=== PATIENT | male | born 1945 | race Caucasian/White ===

== ENCOUNTER 2020-05-10 01:28 | Inpatient (IN) | payer MEDICARE ==
[2020-05-10] MEDS ORDERED: SODIUM CHLORIDE 0.9% 500 ML 500 ML IV STA (02:09)
[2020-05-10] MEDS ORDERED: MORPHINE SULFATE 4 MG/ML SYRINGE IV STA (02:09)
[2020-05-10] MEDS ORDERED: HEPARIN SODIUM,PORCINE 5,000 UNIT/ML 1 ML VIAL IV PRN (02:18)
[2020-05-10] MEDS ORDERED: HEPARIN SODIUM,PORCINE 10,000 UNIT/ML 1 ML VIAL IV ONE (02:18)
[2020-05-10] MEDS ORDERED: HEPARIN SOD,PORK IN 0.45% NACL 25,000 UNIT in 0.45% NACL 1 250ML.BAG IV SCH ×2 (02:30→11:00)
--- NOTE | 2020-05-10 02:35 | ED ---
Extremity Problem HPI - General Chief complaint: Extremity Problem,Nontraumatic Stated complaint: Abn Labs Time Seen by Provider: 05/10/20 01:34 Source: patient, EMS Mode of arrival: EMS Limitations: no limitations - History of Present Illness Initial comments: This patient is 74-year-old man with history of previous arterial bypass, who presents for suspected worsening of peripheral vascular disease. The patient had gone to [facility] with concerns about pain in his left leg. He states that it started around 6 in the morning. He went to the other hospital a little after 6, as he could no longer bear weight on his left leg. Patient relates that he had an arterial bypass performed by Dr. Ramirez here about 20 years ago, but he is not recalling the exact procedure. Patient complains of aching from the left buttock area following down the posterior aspect of his leg. He is not able to characterize it well. Currently about 8 out of 10 intensity. He has not noted worsening factors and states that it was made better with pain medication at the other hospital. MD Complaint: extremity pain, cold extremity Onset/Timin -: hour(s) Location: left, lower extremity Severity scale (1-10): 8 Quality: aching Consistency: constant Improves with: medication Worsens with: walking Associated Symptoms: denies other symptoms - Related Data Home Medications Medication Instructions Recorded Confirmed Albuterol Sulfate [Proventil Hfa] 2 puff INHALATION RT-Q4H PRN 05/10/20 05/10/20 Alendronate Sodium [Fosamax] 70 mg PO Q7D 05/10/20 05/10/20 Aspirin EC [Ecotrin Low Dose] 81 mg PO DAILY 05/10/20 05/10/20 Atorvastatin [Lipitor] 40 mg PO HS 05/10/20 05/10/20 Azithromycin 250 mg .ROUTE DAILY 05/10/20 05/10/20 Fenofibrate Nanocrystallized 145 mg PO DAILY 05/10/20 05/10/20 [Fenofibrate] Fluticasone/Salmeterol [Advair Hfa 2 puff INHALATION RT-BID 05/10/20 05/10/20 45-21 Mcg Inhaler] Furosemide [Lasix] 40 mg PO BID 05/10/20 05/10/20 LORazepam [Ativan] 1 mg PO TID PRN 05/10/20 05/10/20 Latanoprost [Xalatan 0.005%] 1 drop BOTH EYES HS 05/10/20 05/10/20 Metoprolol Tartrate [Lopressor] 50 mg PO BID-W/MEALS 05/10/20 05/10/20 Montelukast [Singulair] 10 mg PO HS 05/10/20 05/10/20 Montelukast [Singulair] 10 mg PO HS 05/10/20 05/10/20 Potassium Chloride [Klor-Con 20] 20 meq PO DAILY 05/10/20 05/10/20 Ramipril 10 mg PO DAILY 05/10/20 05/10/20 Sod Phos Di, [place]/K Phos [place] 250 mg PO BID 05/10/20 05/10/20 [Phosphorous 250 mg Tablet] Theophylline 12 Hour [Rusty-Dur] 300 mg PO BID 05/10/20 05/10/20 hydrALAZINE HCL [Apresoline] 50 mg PO BID 05/10/20 05/10/20 metFORMIN HCL 1,000 mg PO BID 05/10/20 05/10/20 predniSONE 5 mg PO DAILY 05/10/20 05/10/20 Allergies Allergy/AdvReac Type Severity Reaction Status Date / Time No Known Allergies Allergy Verified 05/10/20 09:21 Review of Systems ROS Statement: Those systems with pertinent positive or pertinent negative responses have been documented in the HPI. ROS Other: All systems not noted in ROS Statement are negative. Constitutional: Denies: fever, chills Respiratory: Denies: cough, dyspnea Cardiovascular: Denies: chest pain, palpitations, orthopnea, edema, syncope Gastrointestinal: Denies: abdominal pain, nausea, vomiting Genitourinary: Denies: dysuria, hematuria Musculoskeletal: Reports: as per HPI, myalgia. Denies: back pain Skin: Denies: rash, lesions Neurological: Reports: as per HPI, weakness, numbness. Denies: headache, confusion Hematological/Lymphatic: Denies: easy bleeding Past Medical History Past Medical History: Heart Failure, COPD, Diabetes Mellitus, Hypertension Additional Past Medical History / Comment(s): vascular issues History of Any Multi-Drug Resistant Organisms: None Reported Past Surgical History: Cholecystectomy Additional Past Surgical History / Comment(s): vascular surgery bilateral legs Past Psychological History: No Psychological Hx Reported Smoking Status: Former smoker Past Alcohol Use History: None Reported Past Drug Use History: None Reported - Past Family History Father Family Medical History: Coronary Artery Disease (CAD) Mother Family Medical History: No Reported History General Exam Limitations: no limitations General appearance: alert, in no apparent distress Head exam: Present: atraumatic, normocephalic Eye exam: Present: normal appearance. Absent: scleral icterus, conjunctival injection ENT exam: Present: normal oropharynx Respiratory exam: Present: normal lung sounds bilaterally. Absent: respiratory distress, wheezes, rales, rhonchi, stridor Cardiovascular Exam: Present: regular rate, normal rhythm, normal heart sounds. Absent: systolic murmur, diastolic murmur, rubs, gallop GI/Abdominal exam: Present: soft. Absent: distended, tenderness, guarding, rebound, rigid, mass Extremities exam: Present: other (Patient's left leg is cool and dusky about the ankle and foot. No capillary refill detected. No pedal pulses are palpable. Patient is able to move his toes). Absent: normal inspection, normal capillary refill, pedal edema Back exam: Present: normal inspection. Absent: CVA tenderness (R), CVA tenderness (L) Neurological exam: Present: alert. Absent: motor sensory deficit Skin exam: Present: warm, dry, intact, normal color. Absent: rash Course Vital Signs 05/10/20 05/10/20 05/10/20 01:30 02:00 02:30 Temperature 98 F Pulse Rate 100 80 84 Pulse Rate [ Right] Respiratory 18 18 18 Rate Blood Pressure 156/78 156/78 129/75 Blood Pressure [Right Arm] O2 Sat by Pulse 99 99 99 Oximetry 05/10/20 05/10/20 05/10/20 02:50 03:00 03:30 Temperature Pulse Rate 94 88 89 Pulse Rate [ Right] Respiratory 18 18 18 Rate Blood Pressure 159/79 159/79 140/73 Blood Pressure [Right Arm] O2 Sat by Pulse 98 99 98 Oximetry 05/10/20 05/10/20 05/10/20 04:30 06:00 07:00 Temperature Pulse Rate 88 84 Pulse Rate [ Right] Respiratory 18 18 Rate Blood Pressure 152/75 132/79 Blood Pressure [Right Arm] O2 Sat by Pulse 98 98 97 Oximetry 05/10/20 05/10/20 05/10/20 07:30 08:00 08:42 Temperature 98.3 F Pulse Rate Pulse Rate [ 84 Right] Respiratory 14 Rate Blood Pressure Blood Pressure 148/85 [Right Arm] O2 Sat by Pulse 96 95 97 Oximetry 05/10/20 09:30 Temperature Pulse Rate Pulse Rate [ Right] Respiratory 14 Rate Blood Pressure Blood Pressure [Right Arm] O2 Sat by Pulse Oximetry - Reevaluation(s) Reevaluation #1: 05/10/20 02:36 Case is discussed with Dr. Ramirez, as she had performed previous surgery with this patient. He states that we should discuss case with on-call vascular surgery, and I did discuss patient's case with Dr. Noel Medical Decision Making - Lab Data Result diagrams: 05/11/20 06:45 05/11/20 00:32 Lab Results 05/10/20 05/10/20 05/10/20 Range/Units 02:30 02:30 02:30 WBC 9.6 (3.8-10.6) k/uL RBC 5.23 (4.30-5.90) m/uL Hgb 14.4 (13.0-17.5) gm/dL Hct 46.2 (39.0-53.0) % MCV 88.2 (80.0-100.0) fL MCH 27.6 (25.0-35.0) pg MCHC 31.3 (31.0-37.0) g/dL RDW 13.4 (11.5-15.5) % Plt Count 345 (150-450) k/uL Neutrophils % 83 % Lymphocytes % 7 % Monocytes % 6 % Eosinophils % 1 % Basophils % 0 % Neutrophils # 8.0 H (1.3-7.7) k/uL Lymphocytes # 0.7 L (1.0-4.8) k/uL Monocytes # 0.6 (0-1.0) k/uL Eosinophils # 0.1 (0-0.7) k/uL Basophils # 0.0 (0-0.2) k/uL PT 12.5 H (9.0-12.0) sec INR 1.2 H (<1.2) APTT 157.4 H* (22.0-30.0) sec Sodium 134 L (137-145) mmol/L Potassium 4.9 (3.5-5.1) mmol/L Chloride 100 (98-107) mmol/L Carbon Dioxide 16 L (22-30) mmol/L Anion Gap 18 mmol/L BUN 48 H (9-20) mg/dL Creatinine 2.55 H (0.66-1.25) mg/dL Est GFR (CKD-EPI)AfAm 28 (>60 ml/min/1.73 sqM) Est GFR (CKD-EPI)NonAf 24 (>60 ml/min/1.73 sqM) Glucose 123 H (74-99) mg/dL Plasma Lactic Acid Terrence (0.7-2.0) mmol/L Calcium 9.9 (8.4-10.2) mg/dL Total Bilirubin 0.4 (0.2-1.3) mg/dL AST 52 (17-59) U/L ALT 15 (4-49) U/L Alkaline Phosphatase 49 (38-126) U/L Total Protein 6.4 (6.3-8.2) g/dL Albumin 3.8 (3.5-5.0) g/dL 05/10/20 Range/Units 02:30 WBC (3.8-10.6) k/uL RBC (4.30-5.90) m/uL Hgb (13.0-17.5) gm/dL Hct (39.0-53.0) % MCV (80.0-100.0) fL MCH (25.0-35.0) pg MCHC (31.0-37.0) g/dL RDW (11.5-15.5) % Plt Count (150-450) k/uL Neutrophils % % Lymphocytes % % Monocytes % % Eosinophils % % Basophils % % Neutrophils # (1.3-7.7) k/uL Lymphocytes # (1.0-4.8) k/uL Monocytes # (0-1.0) k/uL Eosinophils # (0-0.7) k/uL Basophils # (0-0.2) k/uL PT (9.0-12.0) sec INR (<1.2) APTT (22.0-30.0) sec Sodium (137-145) mmol/L Potassium (3.5-5.1) mmol/L Chloride (98-107) mmol/L Carbon Dioxide (22-30) mmol/L Anion Gap mmol/L BUN (9-20) mg/dL Creatinine (0.66-1.25) mg/dL Est GFR (CKD-EPI)AfAm (>60 ml/min/1.73 sqM) Est GFR (CKD-EPI)NonAf (>60 ml/min/1.73 sqM) Glucose (74-99) mg/dL Plasma Lactic Acid Terrence 1.5 (0.7-2.0) mmol/L Calcium (8.4-10.2) mg/dL Total Bilirubin (0.2-1.3) mg/dL AST (17-59) U/L ALT (4-49) U/L Alkaline Phosphatase (38-126) U/L Total Protein (6.3-8.2) g/dL Albumin (3.5-5.0) g/dL - EKG Data -: EKG Interpreted by [place] EKG shows normal: sinus rhythm, axis (Left axis deviation), intervals (Normal), ST-T waves (Normal) Rate: normal (Rate 94 bpm) Interpretation: other (Possible old anterior and inferior infarct.) Critical Care Time Critical Care Time: Yes (35 minutes) Disposition Clinical Impression: Arterial insufficiency of lower extremity Disposition: ADMITTED IP TO THIS [facility] Condition: Serious Is patient prescribed a controlled substance at d/c from ED?: No
[2020-05-10 02:52] LABS: Basophils % (A) 0 %; Eosinophils # (A) 0.1 k/uL (0-0.7); Eosinophils % (A) 1 %; HCT 46.2 % (39.0-53.0); HGB 14.4 gm/dL (13.0-17.5); Lymphocytes # (A) 0.7 k/uL (1.0-4.8); Lymphocytes % (A) 7 %; MCH 27.6 pg (25.0-35.0); MCHC 31.3 g/dL (31.0-37.0); MCV 88.2 fL (80.0-100.0); Monocytes # (A) 0.6 k/uL (0-1.0); Monocytes % (A) 6 %; Neutrophils % (A) 83 %; Platelet Count 345 k/uL (150-450); RBC 5.23 m/uL (4.30-5.90); RDW 13.4 % (11.5-15.5); WBC 9.6 k/uL (3.8-10.6)
[2020-05-10] MEDS ORDERED: NALOXONE 0.4 MG/ML 1 ML VIAL IV PRN (03:08)
[2020-05-10] MEDS ORDERED: MORPHINE SULFATE 4 MG/ML SYRINGE IV PRN (03:08)
[2020-05-10] MEDS ORDERED: ONDANSETRON 4 MG/2 ML VIAL IVP PRN (03:08)
[2020-05-10] MEDS ORDERED: HYDROmorphone 0.5 MG/0.5 ML SYRINGE IVP PRN (03:08)
[2020-05-10 03:09] LABS: Albumin 3.8 g/dL (3.5-5.0); Calcium 9.9 mg/dL (8.4-10.2); Potassium 4.9 mmol/L (3.5-5.1); Total Bilirubin 0.4 mg/dL (0.2-1.3); Total Protein 6.4 g/dL (6.3-8.2)
[2020-05-10 03:26] LABS: INR 1.2 (<1.2); Prothrombin Time 12.5 sec (9.0-12.0)
[2020-05-10 03:34] LABS: Partial Thromboplastin Time 157.4 sec (22.0-30.0)
[2020-05-10] MEDS: SODIUM CHLORIDE 0.9% 1,000 ML IV SCH ×3 (03:42→21:28)
[2020-05-10] MEDS: FAMOTIDINE 20 MG/2 ML VIAL IV SCH ×2 (03:44→13:51)
[2020-05-10] MEDS ORDERED: LORazepam 1 MG TAB PO PRN (10:15)
[2020-05-10] MEDS ORDERED: ALBUTEROL NEBULIZED 2.5 MG/3 ML INHALATION PRN (10:15)
[2020-05-10] MEDS ORDERED: ASPIRIN 325 MG TAB PO ONE (10:25)
[2020-05-10] MEDS ORDERED: IV FLUID CONTINUATION 200 ML IV ONE (10:28)
[2020-05-10] MEDS: MIDAZOLAM 2 MG/2 ML VIAL IVP ONE ×2 (10:28→10:36)
[2020-05-10] MEDS ORDERED: LIDOCAINE 1% INJ 10MG/ML (20 ML MDV) SQ ONE (10:36)
[2020-05-10] MEDS: fentaNYL (PF) 50 MCG/ML 2 ML AMP IV ONE ×2 (10:38→11:01)
[2020-05-10] MEDS ORDERED: SODIUM CHLORIDE 0.9% 1,000 ML IV ONE (11:08)
[2020-05-10] MEDS ORDERED: ALTEPLASE IV ONE (11:15)
[2020-05-10] MEDS: ALTEPLASE 10 MG in SODIUM CHLORIDE 0.9% 100 ML IA ONE ×2 (11:23→11:46)
[2020-05-10] MEDS ORDERED: IOPAMIDOL-250 100ML BTL INTRAARTER ONE (11:24)
[2020-05-10] MEDS ORDERED: IOPAMIDOL-250 50ML BTL INTRAARTER ONE (11:25)
[2020-05-10] MEDS ORDERED: ALTEPLASE BOLUS 1 MG/1 ML SYRINGE IVP ONE (11:26)
[2020-05-10 12:02] LABS: Glucose,Whole Blood 104 mg/dL (75-99)
[2020-05-10] MEDS: hydrALAZINE HCL 50 MG TAB PO SCH ×2 (13:54→21:44)
[2020-05-10] MEDS: THEOPHYLLINE 24 HOUR 300 MG CAP.ER.24H PO SCH (13:54)
--- NOTE | 2020-05-10 15:42 | P.CNPUL ---
History of Present Illness Consult date: 05/10/20 Requesting physician: Jared Noel Reason for consult: other Chief complaint: Cold extremity, left leg pain History of present illness: 74-year-old white male patient with history significant for severe end-stage COPD, stage IV, with baseline FEV1 of 21% of predicted and chronic hypoxic respi ratory failure on 2 L of oxygen on a regular basis, and maintenance dose of prednisone at 5 mg daily, obstructive sleep apnea on BiPAP, hypertension, hyperlipidemia, diabetes mellitus, coronary artery disease with previous stenting, and previous history of myocardial infarction, peripheral vessel oc clusive disease, with previous aortobifem bypass, who presented to the emergency department as a transfer from [facility] where she went for evaluation of left leg pain, achy discomfort from the left buttock following down to the posterior aspect of his left leg, and cold left lower extremity. Patient was transferred to [facility] for vascular surgery evaluation for suspected worsening of peripheral vascular disease. Left leg was extremely cold and dusky and mottled about the ankle and the foot, a refill was detected, no pedal pulses or posterior tibial pulses are palpable. Dr. Noel evaluated the patient, and patient was taken to the field laborer for aortogram with left lower extremity thrombolysis. Patient came to the intensive care unit following his procedure, he is somewhat confused, but appears to be in no acute distress. Resting in bed, with a consumer safety officer at the bedside, he denies any worsening dyspnea, room air pulse ox is 97%, he has a left brachial sheath in place with TPA infusion at 1 mg/h and heparin infusion per weight-based p rotocol. Today's labs have been reviewed showing white blood cell count of 9.6, hemoglobin of 14.4, INR was 1.2, PTT was 157.4, sodium was 134, potassium is 4.9, chloride was 100, CO2 16, BUN is 48, creatinine is 2.5, LFTs are within normal limits, lactic acid was 1.5, there is still low palpable or Doppler pulses in his left foot, but were told the mottling of the left lower extremity has slightly improved. Left foot and left leg just below the knee is still quite pale and cold to touch. Patient is not complaining of any pain. IV fluids 0.9 normal saline infusing at a rate of 125 ML per hour. Patient is in sinus mechanism slightly tachycardic at a rate of 108 BPM, blood pressure is 154 /97. Review of Systems All systems: negative Constitutional: Denies chills, Denies fever Eyes: denies blurred vision, denies pain Ears, nose, mouth and throat: Denies headache, Denies sore throat Cardiovascular: Denies chest pain, Denies shortness of breath Respiratory: Denies cough Gastrointestinal: Denies abdominal pain, Denies diarrhea, Denies nausea, Denies vomiting Musculoskeletal: Denies myalgias Musculoskeletal: left: foot pain Integumentary: Denies pruritus, Denies rash Neurological: Denies numbness, Denies weakness Psychiatric: Denies anxiety, Denies depression Endocrine: Denies fatigue, Denies weight change Past Medical History Past Medical History: Coronary Artery Disease (CAD), Heart Failure, COPD, Diabetes Mellitus, Eye Disorder, GERD/Reflux, Hyperlipidemia, Hypertension, Myocardial Infarction ([place]), Osteoarthritis (OA), Pneumonia, Sleep Apnea/CPAP/BIPAP, Vascular Disorder Additional Past Medical History / Comment(s): NIDDM type II, past home oxygen use, TERESA with Cpap, MIs in 1997 and 2006, glaucoma bilateral eyes, arthritis bilateral hands Last Myocardial Infarction Date:: 2006 History of Any Multi-Drug Resistant Organisms: None Reported Past Surgical History: Cholecystectomy, Heart Catheterization With Stent Additional Past Surgical History / Comment(s): Aortobifem bypass, bronchoscopy with BAL, bilateral cataracts removed/lens implants. Past Anesthesia/Blood Transfusion Reactions: No Reported Reaction Date of Last Stent Placement:: 2006 Smoking Status: Former smoker - Past Family History Father Family Medical History: Coronary Artery Disease (CAD) Mother Family Medical History: No Reported History Medications and Allergies Home Medications Medication Instructions Recorded Confirmed Type Albuterol Sulfate [Proventil Hfa] 2 puff INHALATION RT-Q4H PRN 05/10/20 05/10/20 History Alendronate Sodium [Fosamax] 70 mg PO Q7D 05/10/20 05/10/20 History Aspirin EC [Ecotrin Low Dose] 81 mg PO DAILY 05/10/20 05/10/20 History Atorvastatin [Lipitor] 40 mg PO HS 05/10/20 05/10/20 History Azithromycin 250 mg .ROUTE DAILY 05/10/20 05/10/20 History Fenofibrate Nanocrystallized 145 mg PO DAILY 05/10/20 05/10/20 History [Fenofibrate] Fluticasone/Salmeterol [Advair Hfa 2 puff INHALATION RT-BID 05/10/20 05/10/20 History 45-21 Mcg Inhaler] Furosemide [Lasix] 40 mg PO BID 05/10/20 05/10/20 History LORazepam [Ativan] 1 mg PO TID PRN 05/10/20 05/10/20 History Latanoprost [Xalatan 0.005%] 1 drop BOTH EYES HS 05/10/20 05/10/20 History Metoprolol Tartrate [Lopressor] 50 mg PO BID-W/MEALS 05/10/20 05/10/20 History Montelukast [Singulair] 10 mg PO HS 05/10/20 05/10/20 History Montelukast [Singulair] 10 mg PO HS 05/10/20 05/10/20 History Potassium Chloride [Klor-Con 20] 20 meq PO DAILY 05/10/20 05/10/20 History Ramipril 10 mg PO DAILY 05/10/20 05/10/20 History Sod Phos Di, [place]/K Phos [place] 250 mg PO BID 05/10/20 05/10/20 History [Phosphorous 250 mg Tablet] Theophylline 12 Hour [Rusty-Dur] 300 mg PO BID 05/10/20 05/10/20 History hydrALAZINE HCL [Apresoline] 50 mg PO BID 05/10/20 05/10/20 History metFORMIN HCL 1,000 mg PO BID 05/10/20 05/10/20 History predniSONE 5 mg PO DAILY 05/10/20 05/10/20 History Allergies Allergy/AdvReac Type Severity Reaction Status Date / Time No Known Allergies Allergy Verified 05/10/20 09:21 Physical Exam Vitals: Vital Signs Temp Pulse Pulse Resp BP BP Pulse Ox 05/10/20 09:30 14 05/10/20 08:42 98.3 F 84 14 148/85 97 05/10/20 06:00 84 18 132/79 98 05/10/20 04:30 88 18 152/75 98 05/10/20 03:30 89 18 140/73 98 05/10/20 03:00 88 18 159/79 99 05/10/20 02:50 94 18 159/79 98 05/10/20 02:30 84 18 129/75 99 05/10/20 02:00 80 18 156/78 99 05/10/20 01:30 98 F 100 18 156/78 99 Intake and Output 05/10/20 05/10/20 05/10/20 06:59 14:59 22:59 Intake Total 8.858 225 Output Total 45 Balance 8.858 180 Intake: IV 225 Intake, IV Titration 8.858 Amount Heparin Sod,Pork in 0.45% 8.858 NaCl 25,000 unit In 0.45 % NaCl 1 250ml.bag @ 18 UNITS/KG/HR 15.186 mls/hr IV .[id number] [id number] Rx#: [id number] Output: Urine 45 Other: Voiding Method Urinal Weight 84.368 kg 84.368 kg GENERAL EXAM: Alert, quite pleasant, slightly confused, 74-year-old white male, on room air with pulse ox of 97% comfortable in no apparent distress. HEAD: Normocephalic/atraumatic. EYES: Normal reaction of pupils, equal size. Conjunctiva pink, sclera white. NOSE: Clear with pink turbinates. THROAT: No erythema or exudates. NECK: No masses, no JVD, no thyroid enlargement, no adenopathy. CHEST: No chest wall deformity. Symmetrical expansion. LUNGS: Equal air entry with no crackles, wheeze, rhonchi or dullness. CVS: Regular rate and rhythm, normal S1 and S2, no gallops, no murmurs, no rubs ABDOMEN: Soft, nontender. No hepatosplenomegaly, normal bowel sounds, no guarding or rigidity. EXTREMITIES: No clubbing, no edema, no cyanosis, bilateral lower extremities are pale and cold, with no palpable or Doppler pulses. Left brachial sheath is in place with alteplase infusion at 1 mg per hour MUSCULOSKELETAL: Muscle strength and tone normal. SPINE: No scoliosis or deformity SKIN: No rashes CENTRAL NERVOUS SYSTEM: Alert and oriented -2. No focal deficits, tone is norm al in all 4 extremities. Results - Laboratory Findings CBC and BMP: 05/10/20 02:30 05/10/20 02:30 PT/INR, D-dimer PT 12.5 sec (9.0-12.0) H 05/10/20 02:30 INR 1.2 (<1.2) H 05/10/20 02:30 Abnormal lab findings: Abnormal Labs 05/10/20 05/10/20 05/10/20 02:30 02:30 02:30 Neutrophils # 8.0 H Lymphocytes # 0.7 L PT 12.5 H INR 1.2 H APTT 157.4 H* Sodium 134 L Carbon Dioxide 16 L BUN 48 H Creatinine 2.55 H Glucose 123 H POC Glucose (mg/dL) 05/10/20 05/10/20 09:05 12:00 Neutrophils # Lymphocytes # PT INR APTT >200.0 H* Sodium Carbon Dioxide BUN Creatinine Glucose POC Glucose (mg/dL) 104 H - Diagnostic Findings Chest x-ray: report reviewed, image reviewed Additional studies: EKG reviewed Assessment and Plan Assessment: Assessment: #1. Acute on chronic arterial insufficiency of left lower extremity, cold left extremity, status post aortogram with left lower extremity thrombolysis, on 05/10/2020. Patient is currently on alteplase infusion and heparin infusion #2. History of peripheral arterial occlusive disease with previous history of aortobifem bypass #3. End-stage COPD, with a baseline FEV1 of 21% of predicted at home oxygen at 2 L/m, on maintenance dose of prednisone 5 mg daily. Patient is also on [place] sp, Advair, maintenance dose of azithromycin 250 mg on Saturday schedule, Ventolin inhaler, Singulair and theophylline #4. History of coronary artery disease with history of stenting #5. Previous history of [place] #6. Chronic congestive heart failure #7. Diabetes mellitus type 2 #8. Hypertension #9. Hyperlipidemia #10. GERD/reflux #11. Obstructive sleep apnea with AHI score of 18.7, on home BiPAP with pressures of 13/9 #12. Former smoker, in remission, carries [id number] smoking history #13. Possible chronic kidney disease, unspecified Plan: Continue close monitoring in the intensive care unit, patient remains on alteplase infusion, and heparin infusion, he is being followed by vascular surgery. Left lower extremity is still cold without Doppler pulses, but we're told it is less mottled. Hemodynamically patient remains stable, maintain pain control, patient is receiving IV fluids at 125 ML per hour. Patient is on his usual inhalers and breathing medications including theophylline, Symbicort, prednisone and Singulair. Not clear if patient has chronic kidney disease or sustained acute kidney injury. We'll obtain follow-up labs in the morning, CBC and BMP. Continue closely monitoring in the intensive care unit. Will order BiPAP for bedtime at his usual pressures of 13/9 I performed a history & physical examination of the patient and discussed their management with my nurse practitioner, Kayla Jordan. I reviewed the nurse practitioner's note and agree with the documented findings and plan of care. Lung sounds are positive for diminished breath sounds. The findings and the impression was discussed with the patient. I attest to the documentation by the nurse practitioner. Time with Patient: Greater than 30
[2020-05-10] MEDS ORDERED: FUROSEMIDE 40 MG TAB PO SCH (16:00)
[2020-05-10 17:06] LABS: Glucose,Whole Blood 145 mg/dL (75-99)
[2020-05-10] MEDS ORDERED: METOPROLOL TARTRATE 50 MG TAB PO SCH (17:30)
--- NOTE | 2020-05-10 17:47 | P.GSCN ---
History of Present Illness Consult date: 05/10/20 (Patient was seen at 7:30 in the morning.) Reason for Consult: left lower extremity ischemia History of present illness: 74-year-old gentleman with history of previous aortic bypass presented to the [facility] emergency department last night secondary to pain in his left lower extremity. He states around 6:00 in the morning he was unable to bear weight on his left leg due to pain and therefore he presented to the emergency department at that time. He was transferred to [facility] and I was contacted at 2:15 in the morning. At that time patient had lactic acid measured at [facility] which was around 2.5 and recheck here in the emergency department at [facility] which showed some improvement to less than 2. When discussing with the emergency department patient was having pain at his left foot as well as coolness but he was moving his foot and toes. After a bolus was given according to the emergency physician his ability to move his foot had improved. He was started on heparin drip and plan was for aortogram with possible intervention in the morning. Patient was then seen this morning and was complaining of some pain but he stated his pain had been the same since overnight. His motion in his foot was more diminished according to the nursing staff and his right foot was now cool as well. He denies any fevers, chills, chest pain or shortness of breath. Review of Systems All systems: negative (What is mentioned in the HPI or past medical history) Past Medical History Past Medical History: Coronary Artery Disease (CAD), Heart Failure, COPD, Diabetes Mellitus, Eye Disorder, GERD/Reflux, Hyperlipidemia, Hypertension, Myocardial Infarction (UT), Osteoarthritis (OA), Pneumonia, Sleep Apnea/CPA P/BIPAP, Vascular Disorder Additional Past Medical History / Comment(s): NIDDM type II, past home oxygen use, TERESA with Cpap, MIs in 1997 and 2006, glaucoma bilateral eyes, arthritis bilateral hands Last Myocardial Infarction Date:: 2006 History of Any Multi-Drug Resistant Organisms: None Reported Past Surgical History: Cholecystectomy, Heart Catheterization With Stent Additional Past Surgical History / Comment(s): Aortobifem bypass, bronchoscopy with BAL, bilateral cataracts removed/lens implants. Past Anesthesia/Blood Transfusion Reactions: No Reported Reaction Date of Last Stent Placement:: 2006 Smoking Status: Former smoker - Past Family History Father Family Medical History: Coronary Artery Disease (CAD) Mother Family Medical History: No Reported History Medications and Allergies Home Medications Medication Instructions Recorded Confirmed Type Albuterol Sulfate [Proventil Hfa] 2 puff INHALATION RT-Q4H PRN 05/10/20 05/10/20 History Alendronate Sodium [Fosamax] 70 mg PO Q7D 05/10/20 05/10/20 History Aspirin EC [Ecotrin Low Dose] 81 mg PO DAILY 05/10/20 05/10/20 History Atorvastatin [Lipitor] 40 mg PO HS 05/10/20 05/10/20 History Azithromycin 250 mg .ROUTE DAILY 05/10/20 05/10/20 History Fenofibrate Nanocrystallized 145 mg PO DAILY 05/10/20 05/10/20 History [Fenofibrate] Fluticasone/Salmeterol [Advair Hfa 2 puff INHALATION RT-BID 05/10/20 05/10/20 History 45-21 Mcg Inhaler] Furosemide [Lasix] 40 mg PO BID 05/10/20 05/10/20 History LORazepam [Ativan] 1 mg PO TID PRN 05/10/20 05/10/20 History Latanoprost [Xalatan 0.005%] 1 drop BOTH EYES HS 05/10/20 05/10/20 History Metoprolol Tartrate [Lopressor] 50 mg PO BID-W/MEALS 05/10/20 05/10/20 History Montelukast [Singulair] 10 mg PO HS 05/10/20 05/10/20 History Montelukast [Singulair] 10 mg PO HS 05/10/20 05/10/20 History Potassium Chloride [Klor-Con 20] 20 meq PO DAILY 05/10/20 05/10/20 History Ramipril 10 mg PO DAILY 05/10/20 05/10/20 History Sod Phos Di, Kidder/K Phos Kidder 250 mg PO BID 05/10/20 05/10/20 History [Phosphorous 250 mg Tablet] Theophylline 12 Hour [Rusty-Dur] 300 mg PO BID 05/10/20 05/10/20 History hydrALAZINE HCL [Apresoline] 50 mg PO BID 05/10/20 05/10/20 History metFORMIN HCL 1,000 mg PO BID 05/10/20 05/10/20 History predniSONE 5 mg PO DAILY 05/10/20 05/10/20 History Allergies Allergy/AdvReac Type Severity Reaction Status Date / Time No Known Allergies Allergy Verified 05/10/20 09:21 Surgical - Exam Vital Signs Temp Pulse Resp BP Pulse Ox 98 F 100 18 156/78 99 05/10/20 01:30 05/10/20 01:30 05/10/20 01:30 05/10/20 01:30 05/10/20 01:30 Nonpalpable femoral, DP, PT, popliteal pulses bilaterally. Left foot is cool to the touch and positive tenderness to palpation at the left calf and thigh. Mild mottling noted at the left thigh. No capillary refill is noted bilateral feet. No Doppler signal is obtainable at the femoral, popliteal or DP PT. - General moderate distress, moderate pain, obese - Eyes PERRL, normal ocular movement - ENT normal pinna, normal nares - Neck no masses - Respiratory normal expansion - Cardiovascular Rhythm: regular - Abdomen Abdomen: soft, non tender - Integumentary no rash - Neurologic no normal coordination, no normal sensation - Psychiatric oriented to time, oriented to person, oriented to place, speech is normal Results - Labs 05/10/20 02:30 05/10/20 02:30 Abnormal Lab Results - Last 24 Hours (Table) 05/10/20 05/10/20 05/10/20 Range/Units 02:30 02:30 02:30 Neutrophils # 8.0 H (1.3-7.7) k/uL Lymphocytes # 0.7 L (1.0-4.8) k/uL PT 12.5 H (9.0-12.0) sec INR 1.2 H (<1.2) APTT 157.4 H* (22.0-30.0) sec Sodium 134 L (137-145) mmol/L Carbon Dioxide 16 L (22-30) mmol/L BUN 48 H (9-20) mg/dL Creatinine 2.55 H (0.66-1.25) mg/dL Glucose 123 H (74-99) mg/dL POC Glucose (mg/dL) (75-99) mg/dL 05/10/20 05/10/20 05/10/20 Range/Units 09:05 12:00 17:04 Neutrophils # (1.3-7.7) k/uL Lymphocytes # (1.0-4.8) k/uL PT (9.0-12.0) sec INR (<1.2) APTT >200.0 H* (22.0-30.0) sec Sodium (137-145) mmol/L Carbon Dioxide (22-30) mmol/L BUN (9-20) mg/dL Creatinine (0.66-1.25) mg/dL Glucose (74-99) mg/dL POC Glucose (mg/dL) 104 H 145 H (75-99) mg/dL Diabetes panel 05/10/20 Range/Units 02:30 Sodium 134 L (137-145) mmol/L Potassium 4.9 (3.5-5.1) mmol/L Chloride 100 (98-107) mmol/L Carbon Dioxide 16 L (22-30) mmol/L BUN 48 H (9-20) mg/dL Creatinine 2.55 H (0.66-1.25) mg/dL Glucose 123 H (74-99) mg/dL Calcium 9.9 (8.4-10.2) mg/dL AST 52 (17-59) U/L ALT 15 (4-49) U/L Alkaline Phosphatase 49 (38-126) U/L Total Protein 6.4 (6.3-8.2) g/dL Albumin 3.8 (3.5-5.0) g/dL Calcium panel 05/10/20 Range/Units 02:30 Calcium 9.9 (8.4-10.2) mg/dL Albumin 3.8 (3.5-5.0) g/dL Pituitary panel 05/10/20 Range/Units 02:30 Sodium 134 L (137-145) mmol/L Potassium 4.9 (3.5-5.1) mmol/L Chloride 100 (98-107) mmol/L Carbon Dioxide 16 L (22-30) mmol/L BUN 48 H (9-20) mg/dL Creatinine 2.55 H (0.66-1.25) mg/dL Glucose 123 H (74-99) mg/dL Calcium 9.9 (8.4-10.2) mg/dL Adrenal panel 05/10/20 Range/Units 02:30 Sodium 134 L (137-145) mmol/L Potassium 4.9 (3.5-5.1) mmol/L Chloride 100 (98-107) mmol/L Carbon Dioxide 16 L (22-30) mmol/L BUN 48 H (9-20) mg/dL Creatinine 2.55 H (0.66-1.25) mg/dL Glucose 123 H (74-99) mg/dL Calcium 9.9 (8.4-10.2) mg/dL Total Bilirubin 0.4 (0.2-1.3) mg/dL AST 52 (17-59) U/L ALT 15 (4-49) U/L Alkaline Phosphatase 49 (38-126) U/L Total Protein 6.4 (6.3-8.2) g/dL Albumin 3.8 (3.5-5.0) g/dL Assessment and Plan Assessment: #1 acute aortic graft occlusion #2 critical limb ischemia of the left lower extremity #3 history of peripheral arterial occlusive disease with aortic bypass #4 end-stage COPD #5 coronary artery disease with history of stenting #6 previous UT #7 diabetes type 2 #8 hypertension #9 acute on chronic kidney disease Plan: Agree with starting heparin drip. We will take him urgently for aortogram and thrombolysis of his lower extremities and aorta. I did discuss with him the possibility of needing open surgery which according to him he was told if he had to undergo anesthesia and a large surgery that he would "". We will have further recommendations after his aortogram and thrombolytic therapy.
--- NOTE | 2020-05-10 17:58 | P.OP ---
Date of Procedure: 05/10/20 Preoperative Diagnosis: Critical limb ischemia of the left lower extremity Aortic occlusive disease Postoperative Diagnosis: Critical limb ischemia left lower extremity Aortic occlusion and left lower extremity femoral occlusion Procedure(s) Performed: Aortogram with initiation of aortic thrombolysis via left brachial artery ultrasound guided access Anesthesia: local, other (Moderate conscious sedation 40 minutes) Surgeon: Jared Noel Estimated Blood Loss (ml): 10 Pathology: none sent Condition: stable Disposition: ICU Indications for Procedure: 74-year-old gentleman presented originally to [facility] emergency department for left lower extremity pain and was transferred to [facility] for surgical intervention and care. He was started on a heparin drip and was found to have no pulses in bilateral groins popliteal or tibial regions. He presents today for aortogram with initiation of thrombolysis versus thrombectomy. Operative Findings: Aortic occlusion just distal to the renal arteries likely aortic graft occlusion. There is reconstitution of the left external iliac artery. Description of Procedure: After written informed consent was obtained the patient all risks benefits and competitions were described patient is brought to the [facility] and laid in the supine position with his left arm outstretched on an armboard. The area of the left arm was prepped and draped in usual sterile fashion. The procedure was performed under local with conscious sedation and continuous monitoring with EKG and pulse ox. After his prepped the area of the left brachial artery was visualized under ultrasound shown to be patent without any disease. Utilizing a multipurpose needle the artery was accessed and a 5-Somali sheath was placed in normal fashion. Glidewire was then placed into the aortic arch followed by pigtail catheter and the wire and catheter were directed into the descending thoracic aorta to the abdominal aorta. Aortogram was then obtained demonstrating occlusion just distal to the renal arteries. At that time a Glidewire was utilized to access the existing graft and with a quick cross catheter the wire was placed into the external iliac artery on the left. Once the lesion was crossed angiogram was taken distally which demonstrated good visualization of the internal iliac and external iliac arteries with femoral artery filling but it appeared to have thrombus at the distal aspect of the femoral artery. At that time the wire was left in place and the 5-Somali sheath in the brachial artery was removed and replaced with a long 55 cm destination 6- Somali sheath.. We then placed a 20cm unifuse thrombolytic catheter across the lesion extending from the aorta to the external iliac artery on the left. This placement would ensure thrombolysis of the aortic graft as well as extending into the right lower extremity. Sheath was then sutured in place with nylon suture and femoral lysis was initiated. Patient will return tomorrow morning for recheck.
[2020-05-10] MEDS: SYMBICORT 80-4.5 MCG INHALER INHALATION SCH (19:24)
--- NOTE | 2020-05-10 20:57 | P.CONS ---
History of Present Illness - Reason for Consult Consult date: 05/10/20 Medical management Requesting physician: Jared Noel - Chief Complaint Left leg cold - History of Present Illness Consultation: This is a 74-year-old patient follows with Dr. Sophia Duval. Chronic stable medical conditions include coronary artery disease, CHF, COPD, diabetes, GERD, hypertension, hyperlipidemia, osteoarthritis,(s) sleep apnea uses CPAP, arthritis. Home oxygen 2 L. Patient has known peripheral arterial disease. Initially presented to [facility] last night with increasing pain in his left leg. Starting around 6 AM. He had previous arterial bypass done by Dr. Lobato about 20 years ago. Having pain from the left buttock down to the posterior aspect of the leg. Patient had become rather severe. Neck like was called and also mottled from the ankle downwards. Patient was taken to the [facility] earlier today by Dr. Noel and extensive trouble lysis was carried out. Patient somewhat delirious. Patient also getting a TPA infusion and heparin infusion. Patient did tell his name but somewhat delirious. Admitting review of systems cannot be done as patient rather delirious Past medical history to include: Coronary artery disease, CHF, COPD, diabetes, GERD, hypertension, hyperlipidemia, osteoarthritis, Lucho sleep apnea uses CPAP, peripheral arterial disease, home oxygen 2 L, glaucoma, arthritis September-bypass, cardiac catheterization was stent Social history: Patient lives alone. recently about 2 weeks ago. Was in a group home. He does use a walker. Patient smoked for 30 years stopped in 1995. No alcohol history reported. Physical examination: VITAL SIGNS: 99, 128, 23, 134/59, 99% on nasal cannula GENERAL: BMI 29.1, laying in bed awake slightly delirious. EYES: Pupils equal. Conjunctiva normal. HEENT: External appearance of nose and ears normal, oral cavity dry. NECK: JVD unable to assess; masses not palpable. HEART: First and second heart sounds are normal; no edema. LUNGS: Respiratory rate normal; decreased breath sounds. ABDOMEN: Soft, nontender, liver spleen not palpable, no masses palpable. PSYCH: [Patient does state his name is not sure where he is, delirious l. NEUROLOGICAL: [Cranial nerves grossly intact; no facial asymmetry, EXTREMITY: Patient's left leg is cool distally LYMPHATICS: No lymph nodes palpable in the axilla and neck INVESTIGATIONS, reviewed in the clinical context: White count 9.6 hemoglobin 14.4 platelets 345 pro time 12.5 potassium 4.9 bun 48 creatinine 2.55 EKG tracing personally reviewed by me-still sensitive the with poor R-wave progr ession Assessment: -Critical limb ischemia acute to the left lower extremity with aortic occlusion and left lower extremity femoral occlusion. Followed by aortic thrombolysis via left brachial artery. -Acute delirium multifactorial -Coronary artery disease prior history of stent -Chronic congestive heart failure EF not known -COPD in an ex-smoker -Diabetes mellitus type 2 -GERD -Hyperlipidemia -Essential hypertension -Primary osteoarthritis -Obstructive sleep apnea uses CPAP machine -Suspect chronic kidney disease, acute kidney injury cannot be ruled out given the occlusion Plan: Patient's currently getting alteplase, Symbicort, IV heparin, hydralazine, Lopressor, prednisone, theophylline. For now will discontinue patient's Lasix, lisinopril metformin. Accu-Cheks will be closely followed with sliding scale insulin. Repeat electrolytes in the morning. Thank you Dr. Noel Past Medical History Past Medical History: Heart Failure, COPD, Diabetes Mellitus, Hypertension Additional Past Medical History / Comment(s): vascular issues History of Any Multi-Drug Resistant Organisms: None Reported Past Surgical History: Cholecystectomy Additional Past Surgical History / Comment(s): vascular surgery bilateral legs Past Psychological History: No Psychological Hx Reported Smoking Status: Former smoker Past Alcohol Use History: None Reported Past Drug Use History: None Reported - Past Family History Father Family Medical History: Coronary Artery Disease (CAD) Mother Family Medical History: No Reported History Medications and Allergies Home Medications Medication Instructions Recorded Confirmed Type Albuterol Sulfate [Proventil Hfa] 2 puff INHALATION RT-Q4H PRN 05/10/20 05/10/20 History Alendronate Sodium [Fosamax] 70 mg PO Q7D 05/10/20 05/10/20 History Aspirin EC [Ecotrin Low Dose] 81 mg PO DAILY 05/10/20 05/10/20 History Atorvastatin [Lipitor] 40 mg PO HS 05/10/20 05/10/20 History Azithromycin 250 mg .ROUTE DAILY 05/10/20 05/10/20 History Fenofibrate Nanocrystallized 145 mg PO DAILY 05/10/20 05/10/20 History [Fenofibrate] Fluticasone/Salmeterol [Advair Hfa 2 puff INHALATION RT-BID 05/10/20 05/10/20 History 45-21 Mcg Inhaler] Furosemide [Lasix] 40 mg PO BID 05/10/20 05/10/20 History LORazepam [Ativan] 1 mg PO TID PRN 05/10/20 05/10/20 History Latanoprost [Xalatan 0.005%] 1 drop BOTH EYES HS 05/10/20 05/10/20 History Metoprolol Tartrate [Lopressor] 50 mg PO BID-W/MEALS 05/10/20 05/10/20 History Montelukast [Singulair] 10 mg PO HS 05/10/20 05/10/20 History Montelukast [Singulair] 10 mg PO HS 05/10/20 05/10/20 History Potassium Chloride [Klor-Con 20] 20 meq PO DAILY 05/10/20 05/10/20 History Ramipril 10 mg PO DAILY 05/10/20 05/10/20 History Sod Phos Di, [place]/K Phos [place] 250 mg PO BID 05/10/20 05/10/20 History [Phosphorous 250 mg Tablet] Theophylline 12 Hour [Rusty-Dur] 300 mg PO BID 05/10/20 05/10/20 History hydrALAZINE HCL [Apresoline] 50 mg PO BID 05/10/20 05/10/20 History metFORMIN HCL 1,000 mg PO BID 05/10/20 05/10/20 History predniSONE 5 mg PO DAILY 05/10/20 05/10/20 History Allergies Allergy/AdvReac Type Severity Reaction Status Date / Time No Known Allergies Allergy Verified 05/10/20 09:21 Physical Exam Vitals: Vital Signs Temp Pulse Pulse Resp BP BP Pulse Ox 05/10/20 08:42 98.3 F 84 14 148/85 97 05/10/20 06:00 84 18 132/79 98 05/10/20 04:30 88 18 152/75 98 05/10/20 03:30 89 18 140/73 98 05/10/20 03:00 88 18 159/79 99 05/10/20 02:50 94 18 159/79 98 05/10/20 02:30 84 18 129/75 99 05/10/20 02:00 80 18 156/78 99 05/10/20 01:30 98 F 100 18 156/78 99 Intake and Output 05/09/20 05/10/20 05/10/20 22:59 06:59 14:59 Intake Total 8.858 Balance 8.858 Intake: Intake, IV Titration 8.858 Amount Heparin Sod,Pork in 0.45% 8.858 NaCl 25,000 unit In 0.45 % NaCl 1 250ml.bag @ 18 UNITS/KG/HR 15.186 mls/hr IV .[id number] [facility] Rx#: [id number] Other: Weight 84.368 kg Results CBC & Chem 7: 05/10/20 02:30 05/10/20 02:30 Labs: Abnormal Lab Results - Last 24 Hours (Table) 05/10/20 05/10/20 05/10/20 Range/Units 02:30 02:30 02:30 Neutrophils # 8.0 H (1.3-7.7) k/uL Lymphocytes # 0.7 L (1.0-4.8) k/uL PT 12.5 H (9.0-12.0) sec INR 1.2 H (<1.2) APTT 157.4 H* (22.0-30.0) sec Sodium 134 L (137-145) mmol/L Carbon Dioxide 16 L (22-30) mmol/L BUN 48 H (9-20) mg/dL Creatinine 2.55 H (0.66-1.25) mg/dL Glucose 123 H (74-99) mg/dL
[2020-05-10] MEDS ORDERED: ALTEPLASE 10 MG in SODIUM CHLORIDE 0.9% 100 ML IA ONE (21:00)
[2020-05-10] MEDS ORDERED: ATORVASTATIN 40 MG TAB PO SCH (21:00)
[2020-05-10] MEDS ORDERED: LATANOPROST 0.005% OPHTH DROPS 2.5 ML BTL BOTH EYES SCH (21:00)
[2020-05-10] MEDS ORDERED: metFORMIN 500 MG TAB PO SCH (21:00)
[2020-05-10] MEDS ORDERED: MONTELUKAST 10 MG TAB PO SCH (21:00)
[2020-05-10] MEDS: POTAS-SOD-PHOS 278-164-250 MG 1 EACH PACKET PO SCH (21:33)
[2020-05-10 21:39] LABS: Glucose,Whole Blood 171 mg/dL (75-99)
[2020-05-10] MEDS: INSULIN ASPART (NovoLOG) 100 UNIT/ML VIAL SQ SCH (21:41)
[2020-05-10] MEDS ORDERED: HALOPERIDOL LACTATE 5 MG/ML 1 ML VIAL IVP ONE (22:06)
[2020-05-10 22:43] LABS: Basophils % (A) 0 %; Eosinophils # (A) 0.1 k/uL (0-0.7); Eosinophils % (A) 0 %; HCT 48.7 % (39.0-53.0); HGB 15.2 gm/dL (13.0-17.5); Hypochromasia Marked; Lymphocytes # (A) 0.5 k/uL (1.0-4.8); Lymphocytes % (A) 4 %; MCH 29.3 pg (25.0-35.0); MCHC 31.2 g/dL (31.0-37.0); Mean Platelet Volume 8.6; Monocytes # (A) 0.7 k/uL (0-1.0); Monocytes % (A) 5 %; Neutrophils # (A) 11.5 k/uL (1.3-7.7); Neutrophils % (A) 89 %; Platelet Count 217 k/uL (150-450); RBC 5.18 m/uL (4.30-5.90); RDW 13.2 % (11.5-15.5); WBC 12.8 k/uL (3.8-10.6)
[2020-05-10] MEDS ORDERED: EPINEPHrine 10 ML SYRINGE (0.1 MG/ML) ONE (23:05)
[2020-05-10] MEDS ORDERED: SODIUM BICARB 8.4% 50 ML SYR (1 MEQ/ML) ONE ×2 (23:05→23:19)
[2020-05-10] MEDS ORDERED: MORPHINE SULFATE 2 MG/ML SYRINGE ONE (23:18)
[2020-05-10] MEDS ORDERED: AMIODARONE 360 MG in DEXTROSE 5% IN WATER 200 ML IV ONE ×2 (23:26)
[2020-05-10] MEDS ORDERED: PROPOFOL 100 ML IV ONE (23:27)
--- NOTE | 2020-05-11 00:03 | XR ---
EXAMINATION TYPE: XR chest 1V portable DATE OF EXAM: 05/10/2020 COMPARISON: 12/19/2018 HISTORY: Respiratory failure Endotracheal tube is 5 cm from the lonnie. There are chest leads. Lungs are clear of infiltrate. The re is no heart failure. There is no pleural effusion. Trachea is midline. There appears to be nasogastric tube in the gastric fundus. IMPRESSION: No active cardiopulmonary disease. Normal heart.
[2020-05-11] MEDS: SODIUM CHLORIDE 0.45% 1,000 ML with SODIUM BICARB (1 MEQ/ML) 150 ML IV SCH ×4 (00:17→08:43)
--- NOTE | 2020-05-11 00:34 | P.PN ---
Progress Note - Text Progress Note Date: 05/11/20 Code Carly Team note Code carly activated at 2308. Arrived on the scene at 2311. The patient was undergoing CPR. Discussed case with RN and reviewed patient's chart. The RN notified the development writer that the patient was noted to have bradycardia and subsequently went into asystole. High quality CPR was immediately initiated @ 2308. He was given 2 boluses of IV push epinephrine, and 2 ampules of bicarbonate with subsequent ROSC at 2314. External pacing was initially applied to 2314 and was subsequently turned off. The patient then developed stable V. tach for which 150 mg amiodarone bolus was given. The patient was intubated by [facility] TIG WELDER. The case was discussed with Dr. Noel who noted that he will take the patient to the OR tonight for possible revascularization of the aorta and lower extremities. Cardiology consult was also placed and Dr Montana and Hilario were notified by the RN. Labs were ordered.
[2020-05-11 00:56] LABS: VBG PH 6.99 (7.31-7.41)
[2020-05-11 00:59] LABS: Calcium 8.4 mg/dL (8.4-10.2); Magnesium 1.7 mg/dL (1.6-2.3); Total Bilirubin 0.6 mg/dL (0.2-1.3); Total Protein 5.5 g/dL (6.3-8.2)
[2020-05-11 01:05] LABS: Potassium 7.3 mmol/L (3.5-5.1)
[2020-05-11] MEDS ORDERED: INSULIN REGULAR 100 UNIT/ML VIAL IV ONE ×3 (01:07→16:00)
[2020-05-11] MEDS ORDERED: DEXTROSE 50% SYRINGE 50 ML IVP ONE ×4 (01:07→16:00)
[2020-05-11] MEDS ORDERED: SODIUM BICARB 8.4% 50 ML SYR (1 MEQ/ML) ONE ×3 (01:08→16:00)
[2020-05-11] MEDS ORDERED: SODIUM BICARB 8.4% 50 ML SYR (1 MEQ/ML) IV STA ×2 (01:08→09:04)
[2020-05-11] MEDS ORDERED: CALCIUM CHLORIDE 100 MG/ML 10 ML SYRINGE IVP STA (01:09)
[2020-05-11] MEDS ORDERED: DEXTROSE 50% SYRINGE 50 ML IVP STA ×2 (01:11→09:04)
[2020-05-11] MEDS ORDERED: EPINEPHrine 10 ML SYRINGE (0.1 MG/ML) ONE ×2 (01:16→16:00)
[2020-05-11] MEDS ORDERED: NITROGLYCERIN-D5W PMX 50 MG/250 ML BOTTLE IV ONE (01:16)
[2020-05-11] MEDS ORDERED: WATER FOR INJECTION, STERILE 10 ML VIAL IV ONE (01:16)
[2020-05-11] MEDS ORDERED: HEPARIN SODIUM,PORCINE 10,000 UNIT/ML 1 ML VIAL ONE (01:16)
[2020-05-11] MEDS ORDERED: IV FLUID CONTINUATION 1,000 ML IV ONE (01:16)
[2020-05-11] MEDS ORDERED: INSULIN REGULAR 100 UNIT/ML VIAL ONE (01:16)
[2020-05-11] MEDS ORDERED: ALBUMIN HUMAN 5% (25gm) 500 ML VIAL IVPB ONE (01:16)
[2020-05-11] MEDS ORDERED: CALCIUM CHLORIDE 100 MG/ML 10 ML SYRINGE ONE (01:16)
[2020-05-11] MEDS ORDERED: ROCURONIUM BROMIDE 10 MG/ML 5 ML VIAL IV ONE (01:16)
--- NOTE | 2020-05-11 01:39 | P.PN ---
Progress Note - Text Progress Note Date: 05/11/20 I was contacted to see the patient secondary to a recent CODE BLUE. Per the nursing staff the patient was conversing but was slightly confused prior to going into bradycardia and then asystole. CPR was initiated and ROSC was obtained. Prior to the incidence the nursing staff states he was comfortable and he stated his pain was improved and his legs from earlier in the day. He still did not have any pulses or flow to his lower extremities. We attempted throughout the day to get a hold of family about the phone number that is on file is disconnected. The nurse states that she did talk to a sister earlier but is unable to contact her at this time. We did obtain emergent labs and his lactic acid has increased to 8 and he is in metabolic acidosis at this time. His potassium is 7.3 which was treated medically as well. We will taken to the operating room for open thrombectomy of his left femoral artery and aorta and attempt to improve some revascularization. The ICU staff did also contact the ICU attending chief engineering division as well as drug safety specialist on-call for their input. Upon physical evaluation patient's lower extremities are mottled and cold. He has no signal in both lower extremities at this time. Patient's prognosis is poor.
[2020-05-11 01:49] LABS: Glucose,Whole Blood 283 mg/dL (75-99)
[2020-05-11] MEDS ORDERED: HEPARIN SODIUM,PORCINE 10,000 UNIT in SODIUM CHLORIDE 0.9% 1,000 ML IRRIGATION ONE (01:51)
[2020-05-11] MEDS ORDERED: IOPAMIDOL-370 50ML BTL MISCELLANE ONE ×4 (01:51→04:58)
[2020-05-11] MEDS ORDERED: LACTATED RINGERS 1,000 ML IV ONE ×3 (02:40→05:45)
[2020-05-11 02:58] LABS: Allen Test Performed? Yes
[2020-05-11 02:59] LABS: ABG Base Excess -2.7 mmol/L; ABG HCO3 22 mmol/L (21-25); ABG Oxygen Saturation 98.9 % (94-97); ABG PCO2 37 mmHg (35-45); ABG PH 7.39 (7.35-7.45); ABG PO2 155 mmHg (83-108); ABG TCO2 23 mmol/L (19-24)
[2020-05-11] MEDS ORDERED: THROMBIN (BOVINE) 5,000 UNIT VIAL TOPICAL ONE (04:09)
[2020-05-11] MEDS ORDERED: GELATIN SPONGE,ABSORB (LARGE) 1 EACH SPONGE TOPICAL ONE (04:09)
[2020-05-11] MEDS ORDERED: SODIUM POLYSTYRENE SULFONATE 15 GM/60 ML BOTTLE PO STA ×2 (04:17→09:04)
[2020-05-11] MEDS ORDERED: CALCIUM GLUCONATE 1 GM in SODIUM CHLORIDE 0.9% 100 ML IVPB ONE ×3 (04:17→16:00)
[2020-05-11 04:23] LABS: Glucose,Whole Blood 72 mg/dL (75-99)
[2020-05-11] MEDS ORDERED: SODIUM CHLORIDE 0.9% 1,000 ML with ceFAZolin 4,000 MG IRRIGATION ONE ×2 (04:32)
[2020-05-11] MEDS ORDERED: NITROGLYCERIN 1000MCG/10ML SYRINGE INTRAARTER ONE (05:00)
[2020-05-11 05:21] LABS: Glucose,Whole Blood 102 mg/dL (75-99)
[2020-05-11 05:32] LABS: ABG Base Excess -6.4 mmol/L; ABG HCO3 20 mmol/L (21-25); ABG Oxygen Saturation 99.2 % (94-97); ABG PCO2 43 mmHg (35-45); ABG PH 7.29 (7.35-7.45); ABG PO2 268 mmHg (83-108); ABG TCO2 22 mmol/L (19-24); Allen Test Performed? Yes
[2020-05-11 07:04] LABS: Basophils % (A) 0 %; Eosinophils % (A) 0 %; HCT 26.7 % (39.0-53.0); Lymphocytes # (A) 0.5 k/uL (1.0-4.8); Lymphocytes % (A) 8 %; MCH 27.8 pg (25.0-35.0); MCHC 31.6 g/dL (31.0-37.0); Mean Platelet Volume 8.6; Monocytes # (A) 0.4 k/uL (0-1.0); Monocytes % (A) 8 %; Neutrophils # (A) 4.7 k/uL (1.3-7.7); Neutrophils % (A) 82 %; Platelet Count 129 k/uL (150-450); RBC 3.04 m/uL (4.30-5.90); RDW 13.7 % (11.5-15.5); WBC 5.7 k/uL (3.8-10.6)
[2020-05-11 07:07] LABS: HGB 8.4 gm/dL (13.0-17.5); MCV 87.9 fL (80.0-100.0)
[2020-05-11 07:09] LABS: Glucose,Whole Blood 133 mg/dL (75-99)
[2020-05-11 07:22] LABS: ABG Base Excess -4.4 mmol/L; ABG HCO3 20 mmol/L (21-25); ABG Oxygen Saturation 99.6 % (94-97); ABG PCO2 30 mmHg (35-45); ABG PH 7.43 (7.35-7.45); ABG PO2 384 mmHg (83-108); ABG TCO2 21 mmol/L (19-24)
[2020-05-11 07:24] LABS: Allen Test Performed? no
--- NOTE | 2020-05-11 07:27 | FL ---
EXAMINATION TYPE: FL guidance operating room DATE OF EXAM: 05/11/2020 HISTORY: Fluoroscopy time 3 minutes and 54 seconds of fluoroscopy provided. IMPRESSION: 1. Fluoroscopy time.
[2020-05-11] MEDS ORDERED: METOPROLOL TARTRATE 25 MG TAB PO SCH (07:30)
--- NOTE | 2020-05-11 07:31 | XR ---
EXAMINATION TYPE: XR chest 1V portable DATE OF EXAM: 05/11/2020 COMPARISON: 05/10/2010 HISTORY: Tube placement TECHNIQUE: Single frontal view of the chest is obtained. FINDINGS: ET and NG tubes stable. Heart size stable. Subsegmental basilar changes stable. No pneumot horax. Underlying COPD suspected. There is subcutaneous emphysema along the right lateral chest wall. Hypertrophic and degenerative change of the spine. IMPRESSION: 1. By basilar atelectasis favored over pneumonia with suspected underlying COPD. 2. Findings suggest right sided subcutaneous emphysema. No sizable pneumothorax correlate clinically.
--- NOTE | 2020-05-11 07:35 | CONS ---
CONSULTATION Mr. Wolf is a 74-year-old male who presented with a cold left lower extremity, underwent percutaneous intervention by Dr. Noel yesterday. During the night, he had an episode of asystole and was reported to have an episode of ventricular tachycardia. Subsequently, he was taken back to the operating room during the night and underwent axillary bifem surgery. He is intubated and sedated at this time. He has a history of severe chronic obstructive lung disease on chronic oxygen supplementation, history of coronary artery disease status post percutaneous revascularization with an overall preserved systolic function. He has no prior history of arrhythmia. He has a prior history of revascularization of his lower extremities. He was found to have a totally occluded distal aorta. He was initially infused with tPA. Hemodynamically, he is in sinus mechanism at this time, but is on IV norepinephrine. He had no further episode of ventricular tachycardia or asystole. REVIEW OF SYSTEMS: No review of systems could be obtained. MEDICATION: His medications prior to admission include Apresoline 50 mg twice a day, Singulair 10 mg daily, Rusty-Dur, ramipril 10 mg daily, prednisone, metformin 1 gram twice a day, metoprolol tartrate 50 mg twice a day, Lasix, fenofibrate, Lipitor 40 mg daily, Advair and aspirin. PHYSICAL EXAMINATION: A 74-year-old male, intubated and sedated. Blood pressure running in the 100 with a heart rate in the high 90s. HEAD: Normocephalic. EYES: Sclerae nonicteric. NECK: No bruit appreciated. LUNGS: With decreased air exchange anteriorly with no wheezes. HEART: Regular rate and rhythm. S1, S2. No S3. No rub. ABDOMEN: Soft, hypoactive bowel sounds. No organomegaly. EXTREMITIES: Berhane wrapping in place on both sides with dressing noted. LAB DATA: On presentation, his hemoglobin was 14.4. BUN and creatinine 48 and 2.5. His BUN and creatinine of 33 and 2.3 at this time. His AST 661, ALT of 170. His troponin is 2.4. Hemoglobin 15.2. His pH 7.29, pCO2 of 43, pO2 of 268. His initial EKG on presentation revealed a sinus mechanism with evidence of inferoapical myocardial infarction. His chest x-ray prior to intubation revealed no acute infiltrate. His chest x-ray today revealed mild increase in the markings. IMPRESSION: 1. Acute occlusion of the aorta, status post axillary bifemoral bypass. 2. Episode of ventricular tachycardia and bradycardia. 3. Respiratory failure. 4. Severe chronic obstructive lung disease on chronic oxygen supplementation. 5. History of coronary artery disease with no evidence of acute angina pectoris in the past. 6. Elevation of troponin could be related to the peripheral vascular occlusion and the overall status, most likely representing a type 2 myocardial infarction. 7. History of diabetes. 8. Hypertension. 9. Hyperlipidemia. 10.Chronic kidney disease. RECOMMENDATION: From the cardiac standpoint, will try to wean the IV norepinephrine. Depending on his blood pressure, his beta giovanny will be initiated. I will obtain echocardiogram with Doppler. Follow his renal function closely. Will re-initiate the treatment with statin. The prognosis remains quite poor in view of his known lung status. Thank you for this consult. Will follow with you. MMODL / IJN: [id number] /
[2020-05-11 07:57] LABS: INR 2.8 (<1.2); Prothrombin Time 27.7 sec (9.0-12.0)
[2020-05-11] MEDS ORDERED: EPINEPHrine 4 MG in DEXTROSE 5% IN WATER 250 ML IV SCH ×2 (08:00)
[2020-05-11] MEDS: NOREPINEPHRINE 4 MG in SODIUM CHLORIDE 0.9% 250 ML IV SCH ×2 (08:03→13:08)
[2020-05-11 08:06] LABS: Partial Thromboplastin Time >200.0 sec (22.0-30.0)
[2020-05-11 08:09] LABS: Fibrinogen <60 mg/dL (200-500)
[2020-05-11 08:18] LABS: Albumin 2.8 g/dL (3.5-5.0); Calcium 7.5 mg/dL (8.4-10.2); Magnesium 1.4 mg/dL (1.6-2.3); Total Bilirubin 0.6 mg/dL (0.2-1.3); Total Protein 4.3 g/dL (6.3-8.2)
[2020-05-11] MEDS ORDERED: HYDROCORTISONE SUCCINATE 100 MG/2 ML VIAL IV SCH (08:30)
[2020-05-11 08:31] LABS: Potassium 6.4 mmol/L (3.5-5.1)
[2020-05-11] MEDS: SODIUM CHLORIDE 0.9% 1,000 ML IV SCH ×2 (08:41→13:09)
[2020-05-11] MEDS: AMIODARONE 300 MG in DEXTROSE 5% IN WATER 250 ML IV SCH ×4 (08:43→15:37)
[2020-05-11] MEDS: INSULIN ASPART (NovoLOG) 100 UNIT/ML VIAL SQ SCH ×2 (08:44→14:26)
--- NOTE | 2020-05-11 08:47 | ECHOF ---
Referral Reason:cad MEASUREMENTS -------- HEIGHT: 67.0 cm WEIGHT: 186.0 kg BP: IVSd: 0.9 cm (0.6 - 1.1) LVIDd: 5.2 cm (3.9 - 5.3) LVPWd: 1.0 cm (0.6 - 1.1) IVSs: 1.1 cm LVIDs: 4.8 cm LVPWs: 1.0 cm LAESV Index (A-L): 44.27 ml/m Ao Diam: 3.1 cm (2.0 - 3.7) AV Cusp: 1.8 cm (1.5 - 2.6) LA Diam: 3.4 cm (2.7 - 3.8) MV EXCURSION: 19.027 mm (> 18.000) MV EF SLOPE: 173 mm/s (70 - 150) EPSS: 1.4 cm MV E Oni: 0.69 m/s MV DecT: 166 ms MV A Oni: 0.78 m/s MV E/A Ratio: 0.88 AR PHT: 527 ms RAP: 5.00 mmHg RVSP: 8.92 mmHg FINDINGS -------- Sinus rhythm. Pt. on a vent. The left ventricular size is normal. Left ventricular wall thickness is normal. There is severe g lobal hypokinesis of LV . Overall left ventricular systolic function is severely impaired with, an EF < 20%. Basal Anterior and Basal Inferolateral morfin are the only segments breanna. The right ventricle is normal in size. The left atrial size is normal. Normal LA size by volume 22+/-6 ml/m2. The right atrial size is normal. The aortic valve is trileaflet and appears structurally normal. There is mild aortic regurgitation. The mitral valve is normal. Mild mitral regurgitation is present. The tricuspid valve appears structurally normal. Mild tricuspid regurgitation present. Right vent ricular systolic pressure is normal at < 35 mmHg. There is no pulmonic regurgitation present. The aortic root size is normal. Normal inferior vena cava with normal inspiratory collapse consistent with estimated right atrial pre ssure of 5 mmHg. There is a small, generalized pericardial effusion present. CONCLUSIONS -------- 1. Sinus rhythm. 2. Pt. on a vent. 3. The left ventricular size is normal. 4. Left ventricular wall thickness is normal. 5. There is severe global hypokinesis of LV . 6. Overall left ventricular systolic function is severely impaired with, an EF < 20%. 7. Basal Anterior and Basal Inferolateral morfin are the only segments breanna. 8. The right ventricle is normal in size. 9. The left atrial size is normal. 10. Normal LA size by volume 22+/-6 ml/m2. 11. The right atrial size is normal. 12. The aortic valve is trileaflet and appears structurally normal. 13. There is mild aortic regurgitation. 14. The mitral valve is normal. 15. Mild mitral regurgitation is present. 16. The tricuspid valve appears structurally normal. 17. Mild tricuspid regurgitation present. 18. Right ventricular systolic pressure is normal at < 35 mmHg. 19. There is no pulmonic regurgitation present. 20. The aortic root size is normal. 21. Normal inferior vena cava with normal inspiratory collapse consistent with estimated right atrial pressure of 5 mmHg. 22. There is a small, generalized pericardial effusion present. INSPECTOR CASING: Lorenza Steen RDCS
[2020-05-11] MEDS ORDERED: ASPIRIN 81 MG PO SCH (09:00)
[2020-05-11] MEDS ORDERED: FENOFIBRATE 160 MG TAB PO SCH (09:00)
[2020-05-11] MEDS ORDERED: LISINOPRIL 20 MG TAB PO SCH (09:00)
[2020-05-11] MEDS ORDERED: CHLORHEXIDINE GLUCONATE 15 ML CUP MUCOUS MEM SCH (09:00)
[2020-05-11] MEDS ORDERED: AZITHROMYCIN 250 MG TAB PO SCH (09:00)
[2020-05-11] MEDS ORDERED: FAMOTIDINE 20 MG/2 ML VIAL IV SCH (09:00)
[2020-05-11] MEDS ORDERED: predniSONE 5 MG TAB PO SCH (09:00)
[2020-05-11] MEDS: SYMBICORT 80-4.5 MCG INHALER INHALATION SCH ×2 (09:21→19:55)
[2020-05-11] MEDS: THEOPHYLLINE 24 HOUR 300 MG CAP.ER.24H PO SCH (09:23)
[2020-05-11] MEDS: POTAS-SOD-PHOS 278-164-250 MG 1 EACH PACKET PO SCH (09:24)
[2020-05-11] MEDS: HEPARIN SOD,PORK IN 0.45% NACL 25,000 UNIT in 0.45% NACL 1 250ML.BAG IV SCH ×2 (09:33→14:24)
[2020-05-11 09:40] LABS: ABG Base Excess -5.4 mmol/L; ABG HCO3 21 mmol/L (21-25); ABG Oxygen Saturation 98.2 % (94-97); ABG PCO2 39 mmHg (35-45); ABG PH 7.33 (7.35-7.45); ABG PO2 126 mmHg (83-108); ABG TCO2 22 mmol/L (19-24)
[2020-05-11 09:44] LABS: Allen Test Performed? no
[2020-05-11 10:29] VITALS: TEMP 97.6
--- NOTE | 2020-05-11 10:44 | CDI ---
Documentation Clarification Form Date: 05/11/2020 10:21:43 AM From: Edelmira Seo RN, CCDS Admit Date: 05/10/2020 03:12:00 AM Patient Name: Danny Wolf Visit Number: [id number] ATTENTION: The Clinical Documentation Specialists (CDI) and [facility] Coding Staff appreciate your assistance in clarifying documentation. Please respond to the clarification below the line at the bottom and electronically sign. The CDI & [facility] Coding staff will review the response and follow-up if needed. Please note: Queries are made part of the Legal Health Record. If you have any questions, please contact the author of this message via ITS. Dr. Iraj Rich "-Suspect chronic kidney disease, acute kidney injury cannot be ruled out given the occlusion" was documented in the Medical consult and requires further clarification. History/Risk Factors: Patients baseline BUN/CR/GFR: no baseline available in previous records "Aortic occlusion just distal to the renal arteries likely aortic graft occlusion." Clinical Indicators: 05/10 Medical Consult: "Suspect chronic kidney disease, acute kidney injury cannot be ruled out given the occlusion 05/10 Pulmonary consult: "Not clear if patient has chronic kidney disease or sustained acute kidney injury." 05/10 Vascular Surgery: acute on chronic kidney disease." 05/11 Cardiology Consult: "Chronic kidney disease." Current BUN: 48/33/31 Cr: 2.55/2.31/2.04 GFR: 24/27/32 Treatment: Levophed Gtt titrate for B/P 05/10 500 cc 0.9% IVF bolus with IVF @ 125 cc/hr In order to capture the severity of condition, please clarify if the condition signifies: Acute renal failure, Please specify etiology (if known): Cortical Necrosis Medullary Necrosis Tubular Necrosis Acute kidney injury Acute on chronic renal failure CKD Stage 1 GFR >90 CKD Stage 2 GFR 60-89 CKD Stage 3 GFR 30-59 CKD Stage 4 GFR 15-29 CKD Stage 5 GFR <15 Chronic renal failure/Chronic Kidney disease (CKD) please stage (if known): CKD Stage 1 GFR >90 CKD Stage 2 GFR 60-89 CKD Stage 3 GFR 30-59 CKD Stage 4 GFR 15-29 CKD Stage 5 GFR <15 ESRD Other, please specify Unable to determine (Last Revision: March 2018) Possible acute on chronic kidney disease. Stage III MTDD
--- NOTE | 2020-05-11 11:06 | CDI ---
Documentation Clarification Form Date: 05/11/2020 10:52:18 AM From: Edelmira Seo RN, CCDS Admit Date: 05/10/2020 03:12:00 AM Patient Name: Danny Wolf Visit Number: [id number] ATTENTION: The Clinical Documentation Specialists (CDI) and [facility] Coding Staff appreciate your assistance in clarifying documentation. Please respond to the clarification below the line at the bottom and electronically sign. The CDI & [facility] Coding staff will review the response and follow-up if needed. Please note: Queries are made part of the Legal Health Record. If you have any questions, please contact the author of this message via ITS. Dr. Biggs The patient is on home o2 and was placed on the ventilator s/p Code Blue and requires documentation of clinical significance. History/Risk Factors: COPD, CHF Tobacco use: former Home oxygen: 2l home O2 with BiPAP / @ HS Clinical Indicators: 05/10 Medical Consult: "Home oxygen 2 L. 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 Obstructive sleep apnea with AHI score of 18.7, on home BiPAP with pressures of 13/9." Admission Vital signs: Temp 98, Hr 100, RR 18, B/P 156/78, Spo2 99% RA 05/11 0700 V/S: temp 98.4, HR 84, RR 20, B/P 81/45, Spo2 100% on 100% on 100% FIO2 mechanical vent 05/11 Cardiology Lung/Breathing assessment:"With decreased air exchange anteriorly with no wheezes." 05/11 post intubation ABG/CBG: pH7.39 [id number] pCO2 37 Lactate- 2.7 Treatment: Breathing TX: Ventolin INH Q 4 hrs PRN, Symbicort 2 Puffs INH BID Rusty-24 600 mg PO QD Continuous Pulse ox per ICU protocol Vent: AC20, TV 500, FIO2 100%, PEEP 5 In your professional opinion, can you please clarify if these findings signify one of the following conditions? Acute on Chronic Hypoxic Respiratory Failure Acute on Chronic Hypercapnic Respiratory Failure Other Diagnosis, please specify Unable to determine (Last Query Form Revision: August 2019) MTDD
[2020-05-11 11:07] VITALS: BMI 29.1
--- NOTE | 2020-05-11 11:12 | P.PN ---
Subjective Progress Note Date: 05/11/20 Patient was seen and examined in the ICU. Patient is sedated and on mechanical ventilation in Trendelenburg. Patient underwent aortogram with initiation of aortic thrombolytics via the left brachial artery yesterday for critical limb ischemia of the left lower extremity and aortic occlusive disease. Dr. Noel was called in the middle of the night, as the patient went into bradycardia and then asystole, CPR was initiated and ROSK was obtained. Dr. Noel then took the patient the operating room to attempt to improve some bad revascularization. Cardiology has also been on consult, echocardiogram was completed which showed an ejection fraction less than 20%. The patient had no further episodes of asystole. Objective - Vital Signs Vital signs: Vital Signs Temp 98.4 F 05/11/20 07:00 Pulse 83 05/11/20 08:00 Resp 20 05/11/20 08:00 BP 77/55 05/11/20 08:00 Pulse Ox 100 05/11/20 08:00 Intake & Output 05/10/20 05/11/20 05/11/20 18:59 06:59 18:59 Intake Total 225 5252 241.142 Output Total 45 4180 150 Balance 180 1072 91.142 Weight 84.368 kg Intake: IV 225 3602 Sodium Chloride 0.9% 1, 500 000 ml @ 125 mls/hr IV . Q8H MARIUSZ Rx#:[id number] Intake, IV Titration 150 241.142 Amount Heparin Sod,Pork in 0.45% 241.142 NaCl 25,000 unit In 0.45 % NaCl 1 250ml.bag @ 18 UNITS/KG/HR 15.186 mls/hr IV .[id number] MARIUSZ Rx#: [id number] Sodium Chloride 0.45% 1, 150 000 ml @ 150 mls/hr IV . Q7H40M MARIUSZ with Sodium Bicarb (1 Meq/ml) 150 ml Rx#:[id number] Blood Product 1500 Output: Urine 45 3480 150 Estimated Blood Loss 700 Other: Voiding Method Urinal Indwelling Catheter ABP, PAP, CO, CI - Last Documented Arterial Blood Pressure 80/46 - Exam General appearance: Patient is sedated and intubated with mechanical ventilatio n. Patient is in Trendelenburg. HET: Head is normocephalic and atraumatic. Neck: Supple without lymphadenopathy. Trachea midline. Heart: S1 S2. Regular rate and rhythm. Lungs: No crackles or wheezes are heard. Mechanical ventilation. Abdomen: Soft, nontender, nondistended with bowel sounds. Extremities: Right upper extremity without palpable arterial pulse, audible arterial Doppler signal. Hand is cold with dusky blue color in the fingertips. Left upper extremity with Berhane wrap in place. Arm and fingers cold to touch, no capillary refill, without intact motor sensory . Unable to palpate arterial pulse, audible brachial pulse proximal to brachial artery access site. Bilateral femoral sites with dressing clean dry and intact. No hematoma is noted. Bilateral lower extremities cold to touch. Left lower extremity with blanching, right lower extremity dusky with delayed capillary refill . Bilateral popliteal Doppler signals, no palpable PT or DP pulses, and unable to obtain PT or DP Doppler signal. Bilateral lower extremities with Berhane wrap and dressings intact at fasciotomy sites. Nursing staff and examiner unable to passively bend the left lower extremity. Neurological: No focal deficits. Strength and sensation are grossly intact. - Labs CBC & Chem 7: 05/11/20 06:45 05/11/20 06:45 Labs: Abnormal Lab Results - Last 24 Hours (Table) 05/10/20 05/10/20 05/10/20 Range/Units 09:05 12:00 17:04 WBC (3.8-10.6) k/uL RBC (4.30-5.90) m/uL Hgb (13.0-17.5) gm/dL Hct (39.0-53.0) % Plt Count (150-450) k/uL Neutrophils # (1.3-7.7) k/uL Lymphocytes # (1.0-4.8) k/uL PT (9.0-12.0) sec INR (<1.2) APTT >200.0 H* (22.0-30.0) sec Fibrinogen (200-500) mg/dL ABG pH (7.35-7.45) ABG pCO2 (35-45) mmHg ABG pO2 (83-108) mmHg ABG HCO3 (21-25) mmol/L ABG O2 Saturation (94-97) % ABG Lactic Acid (0.5-1.6) mmol/L VBG pH (7.31-7.41) VBG HCO3 (24-28) mmol/L Sodium (137-145) mmol/L Potassium (3.5-5.1) mmol/L Carbon Dioxide (22-30) mmol/L BUN (9-20) mg/dL Creatinine (0.66-1.25) mg/dL Glucose (74-99) mg/dL POC Glucose (mg/dL) 104 H 145 H (75-99) mg/dL Plasma Lactic Acid Terrence (0.7-2.0) mmol/L Calcium (8.4-10.2) mg/dL Magnesium (1.6-2.3) mg/dL AST (17-59) U/L ALT (4-49) U/L Alkaline Phosphatase (38-126) U/L Troponin I (0.000-0.034) ng/mL Total Protein (6.3-8.2) g/dL Albumin (3.5-5.0) g/dL 05/10/20 05/10/20 05/10/20 Range/Units 21:37 22:20 22:20 WBC 12.8 H (3.8-10.6) k/uL RBC (4.30-5.90) m/uL Hgb (13.0-17.5) gm/dL Hct (39.0-53.0) % Plt Count (150-450) k/uL Neutrophils # 11.5 H (1.3-7.7) k/uL Lymphocytes # 0.5 L (1.0-4.8) k/uL PT (9.0-12.0) sec INR (<1.2) APTT (22.0-30.0) sec Fibrinogen (200-500) mg/dL ABG pH (7.35-7.45) ABG pCO2 (35-45) mmHg ABG pO2 (83-108) mmHg ABG HCO3 (21-25) mmol/L ABG O2 Saturation (94-97) % ABG Lactic Acid (0.5-1.6) mmol/L VBG pH (7.31-7.41) VBG HCO3 (24-28) mmol/L Sodium (137-145) mmol/L Potassium (3.5-5.1) mmol/L Carbon Dioxide (22-30) mmol/L BUN (9-20) mg/dL Creatinine (0.66-1.25) mg/dL Glucose (74-99) mg/dL POC Glucose (mg/dL) 171 H (75-99) mg/dL Plasma Lactic Acid Terrence 8.3 H* (0.7-2.0) mmol/L Calcium (8.4-10.2) mg/dL Magnesium (1.6-2.3) mg/dL AST (17-59) U/L ALT (4-49) U/L Alkaline Phosphatase (38-126) U/L Troponin I (0.000-0.034) ng/mL Total Protein (6.3-8.2) g/dL Albumin (3.5-5.0) g/dL 05/11/20 05/11/20 05/11/20 Range/Units 00:17 00:17 00:21 WBC (3.8-10.6) k/uL RBC (4.30-5.90) m/uL Hgb (13.0-17.5) gm/dL Hct (39.0-53.0) % Plt Count (150-450) k/uL Neutrophils # (1.3-7.7) k/uL Lymphocytes # (1.0-4.8) k/uL PT (9.0-12.0) sec INR (<1.2) APTT (22.0-30.0) sec Fibrinogen (200-500) mg/dL ABG pH (7.35-7.45) ABG pCO2 (35-45) mmHg ABG pO2 (83-108) mmHg ABG HCO3 (21-25) mmol/L ABG O2 Saturation (94-97) % ABG Lactic Acid (0.5-1.6) mmol/L VBG pH 6.99 L* (7.31-7.41) VBG HCO3 9 L* (24-28) mmol/L Sodium (137-145) mmol/L Potassium (3.5-5.1) mmol/L Carbon Dioxide (22-30) mmol/L BUN (9-20) mg/dL Creatinine (0.66-1.25) mg/dL Glucose (74-99) mg/dL POC Glucose (mg/dL) (75-99) mg/dL Plasma Lactic Acid Terrence 10.3 H* (0.7-2.0) mmol/L Calcium (8.4-10.2) mg/dL Magnesium (1.6-2.3) mg/dL AST (17-59) U/L ALT (4-49) U/L Alkaline Phosphatase (38-126) U/L Troponin I 2.480 H* (0.000-0.034) ng/mL Total Protein (6.3-8.2) g/dL Albumin (3.5-5.0) g/dL 05/11/20 05/11/20 05/11/20 Range/Units 00:32 01:37 02:50 WBC (3.8-10.6) k/uL RBC (4.30-5.90) m/uL Hgb (13.0-17.5) gm/dL Hct (39.0-53.0) % Plt Count (150-450) k/uL Neutrophils # (1.3-7.7) k/uL Lymphocytes # (1.0-4.8) k/uL PT (9.0-12.0) sec INR (<1.2) APTT (22.0-30.0) sec Fibrinogen (200-500) mg/dL ABG pH (7.35-7.45) ABG pCO2 (35-45) mmHg ABG pO2 155 H (83-108) mmHg ABG HCO3 (21-25) mmol/L ABG O2 Saturation 98.9 H (94-97) % ABG Lactic Acid (0.5-1.6) mmol/L VBG pH (7.31-7.41) VBG HCO3 (24-28) mmol/L Sodium 136 L (137-145) mmol/L Potassium 7.3 H* (3.5-5.1) mmol/L Carbon Dioxide 8 L* (22-30) mmol/L BUN 33 H (9-20) mg/dL Creatinine 2.31 H (0.66-1.25) mg/dL Glucose 125 H (74-99) mg/dL POC Glucose (mg/dL) 283 H (75-99) mg/dL Plasma Lactic Acid Terrence (0.7-2.0) mmol/L Calcium (8.4-10.2) mg/dL Magnesium (1.6-2.3) mg/dL AST 661 H (17-59) U/L ALT 170 H (4-49) U/L Alkaline Phosphatase (38-126) U/L Troponin I (0.000-0.034) ng/mL Total Protein 5.5 L (6.3-8.2) g/dL Albumin 3.0 L (3.5-5.0) g/dL 05/11/20 05/11/20 05/11/20 Range/Units 04:22 05:19 05:27 WBC (3.8-10.6) k/uL RBC (4.30-5.90) m/uL Hgb (13.0-17.5) gm/dL Hct (39.0-53.0) % Plt Count (150-450) k/uL Neutrophils # (1.3-7.7) k/uL Lymphocytes # (1.0-4.8) k/uL PT (9.0-12.0) sec INR (<1.2) APTT (22.0-30.0) sec Fibrinogen (200-500) mg/dL ABG pH 7.29 L (7.35-7.45) ABG pCO2 (35-45) mmHg ABG pO2 268 H (83-108) mmHg ABG HCO3 20 L (21-25) mmol/L ABG O2 Saturation 99.2 H (94-97) % ABG Lactic Acid (0.5-1.6) mmol/L VBG pH (7.31-7.41) VBG HCO3 (24-28) mmol/L Sodium (137-145) mmol/L Potassium (3.5-5.1) mmol/L Carbon Dioxide (22-30) mmol/L BUN (9-20) mg/dL Creatinine (0.66-1.25) mg/dL Glucose (74-99) mg/dL POC Glucose (mg/dL) 72 L 102 H (75-99) mg/dL Plasma Lactic Acid Terrence (0.7-2.0) mmol/L Calcium (8.4-10.2) mg/dL Magnesium (1.6-2.3) mg/dL AST (17-59) U/L ALT (4-49) U/L Alkaline Phosphatase (38-126) U/L Troponin I (0.000-0.034) ng/mL Total Protein (6.3-8.2) g/dL Albumin (3.5-5.0) g/dL 05/11/20 05/11/20 05/11/20 Range/Units 06:45 06:45 06:45 WBC (3.8-10.6) k/uL RBC 3.04 L (4.30-5.90) m/uL Hgb 8.4 L D (13.0-17.5) gm/dL Hct 26.7 L (39.0-53.0) % Plt Count 129 L (150-450) k/uL Neutrophils # (1.3-7.7) k/uL Lymphocytes # 0.5 L (1.0-4.8) k/uL PT 27.7 H (9.0-12.0) sec INR 2.8 H (<1.2) APTT >200.0 H* (22.0-30.0) sec Fibrinogen <60 L* (200-500) mg/dL ABG pH (7.35-7.45) ABG pCO2 (35-45) mmHg ABG pO2 (83-108) mmHg ABG HCO3 (21-25) mmol/L ABG O2 Saturation (94-97) % ABG Lactic Acid (0.5-1.6) mmol/L VBG pH (7.31-7.41) VBG HCO3 (24-28) mmol/L Sodium (137-145) mmol/L Potassium 6.4 H* (3.5-5.1) mmol/L Carbon Dioxide 21 L (22-30) mmol/L BUN 31 H (9-20) mg/dL Creatinine 2.04 H (0.66-1.25) mg/dL Glucose 122 H (74-99) mg/dL POC Glucose (mg/dL) (75-99) mg/dL Plasma Lactic Acid Terrence (0.7-2.0) mmol/L Calcium 7.5 L (8.4-10.2) mg/dL Magnesium 1.4 L (1.6-2.3) mg/dL AST 3611 H (17-59) U/L ALT 654 H (4-49) U/L Alkaline Phosphatase 25 L (38-126) U/L Troponin I (0.000-0.034) ng/mL Total Protein 4.3 L (6.3-8.2) g/dL Albumin 2.8 L (3.5-5.0) g/dL 05/11/20 05/11/20 05/11/20 Range/Units 06:54 07:07 07:20 WBC (3.8-10.6) k/uL RBC (4.30-5.90) m/uL Hgb (13.0-17.5) gm/dL Hct (39.0-53.0) % Plt Count (150-450) k/uL Neutrophils # (1.3-7.7) k/uL Lymphocytes # (1.0-4.8) k/uL PT (9.0-12.0) sec INR (<1.2) APTT (22.0-30.0) sec Fibrinogen (200-500) mg/dL ABG pH (7.35-7.45) ABG pCO2 30 L (35-45) mmHg ABG pO2 384 H (83-108) mmHg ABG HCO3 20 L (21-25) mmol/L ABG O2 Saturation 99.6 H (94-97) % ABG Lactic Acid 8.6 H* (0.5-1.6) mmol/L VBG pH (7.31-7.41) VBG HCO3 (24-28) mmol/L Sodium (137-145) mmol/L Potassium (3.5-5.1) mmol/L Carbon Dioxide (22-30) mmol/L BUN (9-20) mg/dL Creatinine (0.66-1.25) mg/dL Glucose (74-99) mg/dL POC Glucose (mg/dL) 133 H (75-99) mg/dL Plasma Lactic Acid Terrence (0.7-2.0) mmol/L Calcium (8.4-10.2) mg/dL Magnesium (1.6-2.3) mg/dL AST (17-59) U/L ALT (4-49) U/L Alkaline Phosphatase (38-126) U/L Troponin I (0.000-0.034) ng/mL Total Protein (6.3-8.2) g/dL Albumin (3.5-5.0) g/dL 05/11/20 Range/Units 09:36 WBC (3.8-10.6) k/uL RBC (4.30-5.90) m/uL Hgb (13.0-17.5) gm/dL Hct (39.0-53.0) % Plt Count (150-450) k/uL Neutrophils # (1.3-7.7) k/uL Lymphocytes # (1.0-4.8) k/uL PT (9.0-12.0) sec INR (<1.2) APTT (22.0-30.0) sec Fibrinogen (200-500) mg/dL ABG pH 7.33 L (7.35-7.45) ABG pCO2 (35-45) mmHg ABG pO2 126 H (83-108) mmHg ABG HCO3 (21-25) mmol/L ABG O2 Saturation 98.2 H (94-97) % ABG Lactic Acid (0.5-1.6) mmol/L VBG pH (7.31-7.41) VBG HCO3 (24-28) mmol/L Sodium (137-145) mmol/L Potassium (3.5-5.1) mmol/L Carbon Dioxide (22-30) mmol/L BUN (9-20) mg/dL Creatinine (0.66-1.25) mg/dL Glucose (74-99) mg/dL POC Glucose (mg/dL) (75-99) mg/dL Plasma Lactic Acid Terrence (0.7-2.0) mmol/L Calcium (8.4-10.2) mg/dL Magnesium (1.6-2.3) mg/dL AST (17-59) U/L ALT (4-49) U/L Alkaline Phosphatase (38-126) U/L Troponin I (0.000-0.034) ng/mL Total Protein (6.3-8.2) g/dL Albumin (3.5-5.0) g/dL Microbiology - Last 24 Hours (Table) 05/11/20 00:30 Sputum Culture - Preliminary Sputum Assessment and Plan Assessment: 1. Aorta bi-iliac aortic graft occlusion 2. Asystole, CPR with ROSC 3. Postoperative axillobifemoral bypass 4. Peripheral arterial disease 5. Coronary arterial disease, EF less than 20% 6. Ischemic left hand and ischemic left lower extremity with rigor 7. Respiratory failure 8. Severe chronic obstructive lung disease 9. Diabetes 10. Hypertension 11. Hyperlipidemia 10. Chronic kidney disease Plan: Continue supportive care. Nursing is attempting to contact next of kin for poor prognosis andto discuss further interventions and plan of care. Continue with ICU management. Further recommendations to follow. The above dictated assessment and findings were discussed with Dr. Galloway. The impression and plan of care have been directed as dictated.
--- NOTE | 2020-05-11 12:26 | IR ---
Fluoroscopy HISTORY: cold leg 8.3 minutes fluoroscopy time supplied to the referring clinician. 340 intraoperative C-arm images do cument the procedure. See dictated report from vascular surgery.
[2020-05-11] MEDS ORDERED: PROPOFOL 1,000 MG in EMPTY BAG 1 BAG IV SCH (13:15)
--- NOTE | 2020-05-11 13:40 | P.PN ---
Subjective Progress Note Date: 05/11/20 Principal diagnosis: Acute on chronic arterial insufficiency with acute ischemic left leg. 74-year-old white male patient with history significant for severe end-stage COPD, stage IV, with baseline FEV1 of 21% of predicted and chronic hypoxic respiratory failure on 2 L of oxygen on a regular basis, and maintenance dose of prednisone at 5 mg daily, obstructive sleep apnea on BiPAP, hypertension, hyperlipidemia, diabetes mellitus, coronary artery disease with previous stenting, and previous history of myocardial infarction, peripheral vessel occlusive disease, with previous aortobifem bypass, who presented to the emergency department as a transfer from [facility] where she went for evaluation of left leg pain, achy discomfort from the left buttock following down to the posterior aspect of his left leg, and cold left lower extremity. Patient was transferred to [facility] for vascular surgery evaluation for suspected worsening of peripheral vascular disease. Left leg was extremely cold and dusky and mottled about the ankle and the foot, a refill was detected, no pedal pulses or posterior tibial pulses are palpable. Dr. Gandhi evaluated the patient, and patient was taken to the drop crew laborer for aortogram with left lower extremity thrombolysis. Patient came to the intensive care unit following his procedure, he is somewhat confused, but appears to be in no acute distress. Resting in bed, with a director of safety at the bedside, he denies any worsening dyspnea, room air pulse ox is 97%, he has a left brachial sheath in place with TPA infusion at 1 mg/h and heparin infusion per weight- based protocol. Today's labs have been reviewed showing white blood cell count of 9.6, hemoglobin of 14.4, INR was 1.2, PTT was 157.4, sodium was 134, potassium is 4.9, chloride was 100, CO2 16, BUN is 48, creatinine is 2.5, LFTs are within normal limits, lactic acid was 1.5, there is still low palpable or Doppler pulses in his left foot, but were told the mottling of the left lower extremity has slightly improved. Left foot and left leg just below the knee is still quite pale and cold to touch. Patient is not complaining of any pain. IV fluids 0.9 normal saline infusing at a rate of 125 ML per hour. Patient is in sinus mechanism slightly tachycardic at a rate of 108 BPM, blood pressure is 154/97. Patient was reevaluated today on 05/11/20, patient had significant cardiac events last night. At 2300 hrs., patient had a cardiac arrest, and asystole. Patient underwent CPR, he received 2 A of epinephrine 2 A of bicarb he developed ventricular tachycardia and he received defibrillation. Patient was coded for a total of 9 minutes. Patient developed significant ischemia of lower extremities, vascular surgery was notified, and Dr. gandhi came back press technician hours and took the patient back to the operating room. Underwent axillary aortic bypass, and bifemoral bypass. Patient was at the time extremely acidotic, his lactic acid was significantly elevated. Patient had hyperkalemia and he received in the OR at least 3 L of fluids 3 A of bicarb in the OR. And came back to the ICU intubated, on mechanical ventilation, his ventilator settings are assist control rate of 20 tidal volume is 500 and FiO2 on the pe rcent with a PEEP of 5 after reviewing the ABG which showed a pO2 of 384 pCO2 of 30 pH of 7.43, I cut down his FiO2 to 50% and his tidal volume to 450. Patient is presently on epinephrine drip at 0.01 mcg/kg/m he is also on norepinephrine at 0.16 mcg/kg/m he is on sodium bicarb drip at 150 ML per hour. Received amiodarone bolus last night for his ventricular tachycardia. Presently off amiodarone. Chest x-ray showed mostly bibasilar atelectasis, and evidence of COPD. No clear-cut evidence of pneumonia. No evidence of pneumothorax, but he does have some right-sided subcutaneous emphysema. Liver enzymes were noted to be elevated today, they were normal yesterday and I'll see the patient has a shock liver. Potassium is high at 6.4. Bicarb is still low, anion gap is 19. Patient also developed acute kidney injury. For his hyperkalemia and acidosis, patient was given more bicarb this morning, also given D50, insulin, and Kayexalate. Will have a repeat potassium in the next few hours patient is on mechanical ventilation, not requiring any sedation, not on any narcotics and not on any sedatives. Patient is unresponsive to deep painful stimuli. May have sustained some anoxic brain injury during his cardiac arrest. Patient also received some calcium gluconate for his hyperkalemia. Considering the patient is hypotensive I recommended that we continue norepinephrine and epinephrine and I will also recommended Solu-Cortef 50 mg IV push every 8 hours since the patient is normally on prednisone at 5 mg daily. Objective - Vital Signs Vital signs: Vital Signs Temp 97.6 F 05/11/20 12:00 Pulse 86 05/11/20 13:00 Resp 20 05/11/20 13:00 BP 106/61 05/11/20 11:56 Pulse Ox 100 05/11/20 13:00 Intake & Output 05/10/20 05/11/20 05/11/20 18:59 06:59 18:59 Intake Total 225 5252 1555.142 Output Total 45 4180 585 Balance 180 1072 970.142 Weight 84.368 kg 84.3 kg Intake: IV 225 3602 750 Sodium Chloride 0.45% 1, 750 000 ml @ 150 mls/hr IV . Q7H40M MARIUSZ with Sodium Bicarb (1 Meq/ml) 150 ml Rx#:[id number] Sodium Chloride 0.9% 1, 500 000 ml @ 125 mls/hr IV . Q8H MARIUSZ Rx#:[id number] Intake, IV Titration 150 495.142 Amount Heparin Sod,Pork in 0.45% 241.142 NaCl 25,000 unit In 0.45 % NaCl 1 250ml.bag @ 18 UNITS/KG/HR 15.186 mls/hr IV .[id number] MARIUSZ Rx#: [id number] Norepinephrine 4 mg In 254.000 Sodium Chloride 0.9% 250 ml @ 0.16 MCG/KG/MIN 51. 431 mls/hr IV .Q4H57M MARIUSZ Rx#:[id number] Sodium Chloride 0.45% 1, 150 000 ml @ 150 mls/hr IV . Q7H40M MARIUSZ with Sodium Bicarb (1 Meq/ml) 150 ml Rx#:[id number] Blood Product 1500 310 Rc As-1 Unit 310 [id number] Output: Urine 45 3480 585 Estimated Blood Loss 700 Other: Voiding Method Urinal Indwelling Catheter Indwelling Catheter ABP, PAP, CO, CI - Last Documented Arterial Blood Pressure 104/54 - Exam Physical Exam: Revealed 74-year-old white male, looks pale, on mechanical ventilation, in no distress. Unresponsive to verbal or painful stimuli. Head: Atraumatic, normocephalic. Endotracheal tube and orogastric tube are intact. HEENT:[Neck is supple.] [No neck masses.] [No thyromegaly.] [No JVD.] Left IJ triple-lumen catheter is noted. Chest: [Diminished breath sound bilaterally no crackles or rhonchi or wheezes.] Cardiac Exam: [Normal S1 and S2, no S3 gallop, no murmur.] Abdomen: [Soft, nontender, no megaly, no rebound, no guarding, normal bowel sounds.] Multiple abdominal surgical scars noted. Extremities: Lower extremities are both are wrapped with Berhane wrappings, pulses are extremely diminished, both feet feel cool to touch. Neurological Exam: Pupils are equally reactive to light, patient is unresponsive to verbal or painful stimuli. Sedation is presently on hold. Psychiatric could not be assessed. - Labs CBC & Chem 7: 05/11/20 06:45 05/11/20 06:45 Labs: Abnormal Lab Results - Last 24 Hours (Table) 05/10/20 05/10/20 05/10/20 Range/Units 17:04 21:37 22:20 WBC 12.8 H (3.8-10.6) k/uL RBC (4.30-5.90) m/uL Hgb (13.0-17.5) gm/dL Hct (39.0-53.0) % Plt Count (150-450) k/uL Neutrophils # 11.5 H (1.3-7.7) k/uL Lymphocytes # 0.5 L (1.0-4.8) k/uL PT (9.0-12.0) sec INR (<1.2) APTT (22.0-30.0) sec Fibrinogen (200-500) mg/dL ABG pH (7.35-7.45) ABG pCO2 (35-45) mmHg ABG pO2 (83-108) mmHg ABG HCO3 (21-25) mmol/L ABG O2 Saturation (94-97) % ABG Lactic Acid (0.5-1.6) mmol/L VBG pH (7.31-7.41) VBG HCO3 (24-28) mmol/L Sodium (137-145) mmol/L Potassium (3.5-5.1) mmol/L Carbon Dioxide (22-30) mmol/L BUN (9-20) mg/dL Creatinine (0.66-1.25) mg/dL Glucose (74-99) mg/dL POC Glucose (mg/dL) 145 H 171 H (75-99) mg/dL Plasma Lactic Acid Terrence (0.7-2.0) mmol/L Calcium (8.4-10.2) mg/dL Magnesium (1.6-2.3) mg/dL AST (17-59) U/L ALT (4-49) U/L Alkaline Phosphatase (38-126) U/L Troponin I (0.000-0.034) ng/mL Total Protein (6.3-8.2) g/dL Albumin (3.5-5.0) g/dL Crossmatch 05/10/20 05/11/20 05/11/20 Range/Units 22:20 00:17 00:17 WBC (3.8-10.6) k/uL RBC (4.30-5.90) m/uL Hgb (13.0-17.5) gm/dL Hct (39.0-53.0) % Plt Count (150-450) k/uL Neutrophils # (1.3-7.7) k/uL Lymphocytes # (1.0-4.8) k/uL PT (9.0-12.0) sec INR (<1.2) APTT (22.0-30.0) sec Fibrinogen (200-500) mg/dL ABG pH (7.35-7.45) ABG pCO2 (35-45) mmHg ABG pO2 (83-108) mmHg ABG HCO3 (21-25) mmol/L ABG O2 Saturation (94-97) % ABG Lactic Acid (0.5-1.6) mmol/L VBG pH (7.31-7.41) VBG HCO3 (24-28) mmol/L Sodium (137-145) mmol/L Potassium (3.5-5.1) mmol/L Carbon Dioxide (22-30) mmol/L BUN (9-20) mg/dL Creatinine (0.66-1.25) mg/dL Glucose (74-99) mg/dL POC Glucose (mg/dL) (75-99) mg/dL Plasma Lactic Acid Terrence 8.3 H* 10.3 H* (0.7-2.0) mmol/L Calcium (8.4-10.2) mg/dL Magnesium (1.6-2.3) mg/dL AST (17-59) U/L ALT (4-49) U/L Alkaline Phosphatase (38-126) U/L Troponin I 2.480 H* (0.000-0.034) ng/mL Total Protein (6.3-8.2) g/dL Albumin (3.5-5.0) g/dL Crossmatch 05/11/20 05/11/20 05/11/20 Range/Units 00:21 00:32 01:37 WBC (3.8-10.6) k/uL RBC (4.30-5.90) m/uL Hgb (13.0-17.5) gm/dL Hct (39.0-53.0) % Plt Count (150-450) k/uL Neutrophils # (1.3-7.7) k/uL Lymphocytes # (1.0-4.8) k/uL PT (9.0-12.0) sec INR (<1.2) APTT (22.0-30.0) sec Fibrinogen (200-500) mg/dL ABG pH (7.35-7.45) ABG pCO2 (35-45) mmHg ABG pO2 (83-108) mmHg ABG HCO3 (21-25) mmol/L ABG O2 Saturation (94-97) % ABG Lactic Acid (0.5-1.6) mmol/L VBG pH 6.99 L* (7.31-7.41) VBG HCO3 9 L* (24-28) mmol/L Sodium 136 L (137-145) mmol/L Potassium 7.3 H* (3.5-5.1) mmol/L Carbon Dioxide 8 L* (22-30) mmol/L BUN 33 H (9-20) mg/dL Creatinine 2.31 H (0.66-1.25) mg/dL Glucose 125 H (74-99) mg/dL POC Glucose (mg/dL) 283 H (75-99) mg/dL Plasma Lactic Acid Terrence (0.7-2.0) mmol/L Calcium (8.4-10.2) mg/dL Magnesium (1.6-2.3) mg/dL AST 661 H (17-59) U/L ALT 170 H (4-49) U/L Alkaline Phosphatase (38-126) U/L Troponin I (0.000-0.034) ng/mL Total Protein 5.5 L (6.3-8.2) g/dL Albumin 3.0 L (3.5-5.0) g/dL Crossmatch 05/11/20 05/11/20 05/11/20 Range/Units 02:50 04:22 05:19 WBC (3.8-10.6) k/uL RBC (4.30-5.90) m/uL Hgb (13.0-17.5) gm/dL Hct (39.0-53.0) % Plt Count (150-450) k/uL Neutrophils # (1.3-7.7) k/uL Lymphocytes # (1.0-4.8) k/uL PT (9.0-12.0) sec INR (<1.2) APTT (22.0-30.0) sec Fibrinogen (200-500) mg/dL ABG pH (7.35-7.45) ABG pCO2 (35-45) mmHg ABG pO2 155 H (83-108) mmHg ABG HCO3 (21-25) mmol/L ABG O2 Saturation 98.9 H (94-97) % ABG Lactic Acid (0.5-1.6) mmol/L VBG pH (7.31-7.41) VBG HCO3 (24-28) mmol/L Sodium (137-145) mmol/L Potassium (3.5-5.1) mmol/L Carbon Dioxide (22-30) mmol/L BUN (9-20) mg/dL Creatinine (0.66-1.25) mg/dL Glucose (74-99) mg/dL POC Glucose (mg/dL) 72 L 102 H (75-99) mg/dL Plasma Lactic Acid Terrence (0.7-2.0) mmol/L Calcium (8.4-10.2) mg/dL Magnesium (1.6-2.3) mg/dL AST (17-59) U/L ALT (4-49) U/L Alkaline Phosphatase (38-126) U/L Troponin I (0.000-0.034) ng/mL Total Protein (6.3-8.2) g/dL Albumin (3.5-5.0) g/dL Crossmatch 05/11/20 05/11/20 05/11/20 Range/Units 05:27 06:45 06:45 WBC (3.8-10.6) k/uL RBC 3.04 L (4.30-5.90) m/uL Hgb 8.4 L D (13.0-17.5) gm/dL Hct 26.7 L (39.0-53.0) % Plt Count 129 L (150-450) k/uL Neutrophils # (1.3-7.7) k/uL Lymphocytes # 0.5 L (1.0-4.8) k/uL PT 27.7 H (9.0-12.0) sec INR 2.8 H (<1.2) APTT >200.0 H* (22.0-30.0) sec Fibrinogen <60 L* (200-500) mg/dL ABG pH 7.29 L (7.35-7.45) ABG pCO2 (35-45) mmHg ABG pO2 268 H (83-108) mmHg ABG HCO3 20 L (21-25) mmol/L ABG O2 Saturation 99.2 H (94-97) % ABG Lactic Acid (0.5-1.6) mmol/L VBG pH (7.31-7.41) VBG HCO3 (24-28) mmol/L Sodium (137-145) mmol/L Potassium (3.5-5.1) mmol/L Carbon Dioxide (22-30) mmol/L BUN (9-20) mg/dL Creatinine (0.66-1.25) mg/dL Glucose (74-99) mg/dL POC Glucose (mg/dL) (75-99) mg/dL Plasma Lactic Acid Terrence (0.7-2.0) mmol/L Calcium (8.4-10.2) mg/dL Magnesium (1.6-2.3) mg/dL AST (17-59) U/L ALT (4-49) U/L Alkaline Phosphatase (38-126) U/L Troponin I (0.000-0.034) ng/mL Total Protein (6.3-8.2) g/dL Albumin (3.5-5.0) g/dL Crossmatch 05/11/20 05/11/20 05/11/20 Range/Units 06:45 06:54 07:07 WBC (3.8-10.6) k/uL RBC (4.30-5.90) m/uL Hgb (13.0-17.5) gm/dL Hct (39.0-53.0) % Plt Count (150-450) k/uL Neutrophils # (1.3-7.7) k/uL Lymphocytes # (1.0-4.8) k/uL PT (9.0-12.0) sec INR (<1.2) APTT (22.0-30.0) sec Fibrinogen (200-500) mg/dL ABG pH (7.35-7.45) ABG pCO2 (35-45) mmHg ABG pO2 (83-108) mmHg ABG HCO3 (21-25) mmol/L ABG O2 Saturation (94-97) % ABG Lactic Acid 8.6 H* (0.5-1.6) mmol/L VBG pH (7.31-7.41) VBG HCO3 (24-28) mmol/L Sodium (137-145) mmol/L Potassium 6.4 H* (3.5-5.1) mmol/L Carbon Dioxide 21 L (22-30) mmol/L BUN 31 H (9-20) mg/dL Creatinine 2.04 H (0.66-1.25) mg/dL Glucose 122 H (74-99) mg/dL POC Glucose (mg/dL) 133 H (75-99) mg/dL Plasma Lactic Acid Terrence (0.7-2.0) mmol/L Calcium 7.5 L (8.4-10.2) mg/dL Magnesium 1.4 L (1.6-2.3) mg/dL AST 3611 H (17-59) U/L ALT 654 H (4-49) U/L Alkaline Phosphatase 25 L (38-126) U/L Troponin I (0.000-0.034) ng/mL Total Protein 4.3 L (6.3-8.2) g/dL Albumin 2.8 L (3.5-5.0) g/dL Crossmatch 05/11/20 05/11/20 05/11/20 Range/Units 07:20 08:30 09:36 WBC (3.8-10.6) k/uL RBC (4.30-5.90) m/uL Hgb (13.0-17.5) gm/dL Hct (39.0-53.0) % Plt Count (150-450) k/uL Neutrophils # (1.3-7.7) k/uL Lymphocytes # (1.0-4.8) k/uL PT (9.0-12.0) sec INR (<1.2) APTT (22.0-30.0) sec Fibrinogen (200-500) mg/dL ABG pH 7.33 L (7.35-7.45) ABG pCO2 30 L (35-45) mmHg ABG pO2 384 H 126 H (83-108) mmHg ABG HCO3 20 L (21-25) mmol/L ABG O2 Saturation 99.6 H 98.2 H (94-97) % ABG Lactic Acid (0.5-1.6) mmol/L VBG pH (7.31-7.41) VBG HCO3 (24-28) mmol/L Sodium (137-145) mmol/L Potassium (3.5-5.1) mmol/L Carbon Dioxide (22-30) mmol/L BUN (9-20) mg/dL Creatinine (0.66-1.25) mg/dL Glucose (74-99) mg/dL POC Glucose (mg/dL) (75-99) mg/dL Plasma Lactic Acid Terrence (0.7-2.0) mmol/L Calcium (8.4-10.2) mg/dL Magnesium (1.6-2.3) mg/dL AST (17-59) U/L ALT (4-49) U/L Alkaline Phosphatase (38-126) U/L Troponin I (0.000-0.034) ng/mL Total Protein (6.3-8.2) g/dL Albumin (3.5-5.0) g/dL Crossmatch See Detail Microbiology - Last 24 Hours (Table) 05/11/20 00:30 Sputum Culture - Preliminary Sputum Assessment and Plan Assessment: Impression: Acute on chronic arterial insufficiency to right lower extremity and right lower extremity Cardiac arrest requiring CPR for 9 minutes. Patient had asystole and CPR with our OSC after 9 minutes. Post operative check still low femoral bypass. Post aortobiiliac aortic graft occlusion Severe peripheral vessel occlusive disease. Coronary artery disease. Severe LV dysfunction with ejection fraction of 20% as noted on echocardiogram. Severe underlying chronic obstructive pulmonary disease. Acute on chronic hypoxic respiratory failure, patient is known to have history of severe COPD, and he is O2 dependent for many years. His acute episode is mostly related to his cardiac arrest. And LV dysfunction. Acute on chronic kidney injury. Former smoker, in remission. History of obstructive sleep apnea on home BiPAP. History of GERD. Benign essential hypertension Dyslipidemia Type 2 diabetes Previous [place] and underlying coronary artery disease with previous stenting. History of severe COPD, FEV1 is 21%. Maintained at home on 2 L of oxygen via nasal cannula. Recommendation: Continue ventilatory support, and vent settings were changed to tidal volume is 450 rate of 20 FiO2 50% and PEEP is 5. Continue to monitor blood pressure, and continue hemodynamic support. Address her nutrition and enteral feeding. Continue bronchodilators Continue GI and DVT prophylaxis. Address hyperkalemia as done earlier with insulin, D50, calcium gluconate, and Kayexalate. Monitor and correct lactic acidosis. Solu-Cortef to replace prednisone. Daily neurological evaluation for possible anoxic brain injury considering the patient had CPR for 9 minutes. Prognosis at this time is extremely poor and guarded. We'll continue to follow. Critical care time is 40 minutes. Time with Patient: Greater than 30
[2020-05-11 15:18] LABS: HCT 35.2 % (39.0-53.0); MCH 29.1 pg (25.0-35.0); MCHC 33.1 g/dL (31.0-37.0); MCV 87.7 fL (80.0-100.0); Mean Platelet Volume 8.9; Platelet Count 133 k/uL (150-450); RBC 4.01 m/uL (4.30-5.90); RDW 13.7 % (11.5-15.5); WBC 10.7 k/uL (3.8-10.6)
[2020-05-11 15:19] LABS: Calcium 6.6 mg/dL (8.4-10.2)
[2020-05-11 15:21] LABS: HGB 11.7 gm/dL (13.0-17.5)
[2020-05-11 15:35] LABS: Potassium 6.2 mmol/L (3.5-5.1)
--- NOTE | 2020-05-11 15:37 | P.OP ---
Date of Procedure: 05/11/20 Preoperative Diagnosis: Acute bilateral lower extremity critical limb ischemia secondary to aortic occlusion S/P cardiopulmonary arrest Severe metabolic acidosis Postoperative Diagnosis: Bilateral lower extremity critical limb ischemia secondary to aortic occlusion Metabolic acidosis secondary to limb ischemia s/p cardiopulmonary arrest Procedure(s) Performed: 1. Bilateral groin exploration with Iliofemoral open thrombectomy 2. Right axillo-bifemoral artery bypass with [place] propaten graft 3. Selective bilateral lower extremity angiograms 4. Bilateral 4 compartment lower extremity fasciotomy Implants: Ax-bifem bypass graft Anesthesia: GETA Surgeon: Jared Noel Estimated Blood Loss (ml): 750 Urine output (ml): 3,000 Pathology: none sent Condition: critical Disposition: ICU Indications for Procedure: 74 year old male who originally presented for left lower extremity pain, acute limb ischemia this morning and then underwent aortogram with placement of thrombolytic catheter and thrombolysis was initiated presents to the OR for emergent open thrombectomy and possible ax-bifemoral bypass secondary to worsening lactic acidosis, and limb ischemia. Patient was seen around 5 pm after thrombolysis was started and was moving his foot better and had some improvement of pain at that time. Over the next couple of hours patient became tachycardic and then bradycardic and then asystole and a code was called. The patient underwent CPR and they obtained ROSC but labs demonstrated severe lactic acidosis and hyperkalemia. His legs had worsened and attempt to call sister was made without success due to a disconnected line. Discussion with ICU team was had and the lactic acidosis is likely from the ischemic limbs and therefore patient was to be taken to the OR for revascularization and fasciotomy. Operative Findings: Occluded Aortic and common iliac arteries bilaterally. Left SFA and profundus femoris artery were sluggish Right SFA, profunda, popliteal and distal tibial arteries were patent. Left musculature pale, without movement likely tissue Right musculature pink, with good movement under electrocautery. Description of Procedure: Patient was taken to the operative suite emergently and laid in a supine position. The area of the chest, abdomen and lower extremities were prepped and draped in the usual sterile fashion after appropriate anesthesia was performed per the anesthesiologist. Timeout was performed in usual fashion and antibiotics were given prior to incisions. Vertical incisions were then created at the bilateral groins and dissection was carried down to the femoral arteries bilaterally. The femoral, superficial femoral and profunda were dissected in circumferential manner and controlled with vessel loops. Once controlled an arteriotomy was created with an 11-blade scalpel and a 5 pedro balloon was placed in a retrograde fashion up towards the aortic lesion. Multiple attempts under flouroscopy to get across the aortic lesion failed and thrombectomy was performed of the external iliac arteries with minimal clot. Open thrombectomy of the SFA and profunda arteries were performed with some thrombus removed bilaterally with good back bleeding noted on the right. The left back bleeding was sluggish for both the SFA and profunda. Using the existing sheath in the arm an aortogram was obtained which demonstrated loss of access across the lesion of the thrombolytic catheter. There was no filling across the aorta. Due to the blockage it was determined to perform an axillary-femoral bypass at that time. An oblique incision with a 10 blade scalpel was then created just beneath the angle of the clavicle and dissection was carried down to the subclavian and axillary artery. The axillary artery was then controlled with vessel loops and then a tunnel was created from the axillary incision to the groin incisions and a 8mm ringed bifurcated graft was tunneled in normal fashion. Patient was given heparin bolus at that time. Arteriotomy was created with an 11 blade scalpel at the axillary artery and end to side anastomosis was created with 5-0 prolene suture to the [place] graft. Once completed control was released revealing pulsatile blood flow through the graft. The graft was then clamped and attention was placed to the femoral anastomosis. The graft was spatulated and an end to side anastomosis was created to both femoral arteries. Once completed, control was released and there was palpable pulses in the bilateral femoral, profunda and SFA. Doppler signal was multiphasic on the right but the left SFA has some occlusive sound. An angiocath was then placed into the graft and angiograms were obtained of the graft and bilateral lower extremities. The flow was brisk on the right down to the tibial arteries but slowed on the left with occlusive appearance of the SFA. The profunda filled slowly as well. The left lower extremity flow was diminished likely due to outflow occlusion. Fasciotomy was then performed to bilateral lower extremities. An incision was created on the lateral and medial aspects of the calf and dissection to the fascia was performed with electrocautery. The fascia was incised and extended to the ankle and proximal to the knee. The muscle on the right was viable but the left was ischemic and lower extremity was rigid and non viable. The axillary, and femoral incisions were then closed after hemostasis was achieved with gel foam and thrombin. The lower legs were wrapped with 4x4, kerlix, and ila wrap. The brachial sheath was also removed and pressure was held for hemostasis. The left hand was dusky but pulses were noted in the brachial artery with diminished flow distal as well which was attributed to spasm. Once dressings were placed the patient was brought back to the ICU for recovery. Likely patient will require an AKA on the left in the future if he survives. Prognosis is extremely poor.
[2020-05-11] MEDS ORDERED: CALCIUM GLUCONATE 1 GM/10 ML VIAL ONE (16:00)
[2020-05-11] MEDS ORDERED: DEXTROSE 5% IN WATER 50 ML BAG ONE (16:00)
[2020-05-11] MEDS ORDERED: SODIUM BICARB 8.4% 50 ML SYR (1 MEQ/ML) IV ONE (16:00)
[2020-05-11] MEDS ORDERED: AMIODARONE 50 MG/ML 3 ML VIAL IV ONE (16:00)
[2020-05-11] MEDS ORDERED: LIDOCAINE 2% SYG (PF) 100 MG/5 ML ONE (16:00)
[2020-05-11] MEDS ORDERED: MAGNESIUM SULFATE SYG 4.06 MEQ/ML SYRINGE ONE (16:00)
[2020-05-11] MEDS ORDERED: SODIUM POLYSTYRENE SULFONATE 15 GM/60 ML BOTTLE PO ONE (16:00)
[2020-05-11 17:02] LABS: Glucose,Whole Blood 363 mg/dL (75-99)
[2020-05-11 17:58] VITALS: BP 77/55; PULSE 110; RESP 27
--- NOTE | 2020-05-11 18:52 | P.PN ---
Progress Note - Text Progress Note Date: 05/11/20 - Chief Complaint Left leg cold Consultation: This is a 74-year-old patient follows with Dr. Sophia Duval. Chronic stable medical conditions include coronary artery disease, CHF, COPD, diabetes, GERD, hypertension, hyperlipidemia, osteoarthritis,(s) sleep apnea uses CPAP, arthritis. Home oxygen 2 L. Patient has known peripheral arterial disease. Initially presented to [facility] last night with increasing pain in his left leg. Starting around 6 AM. He had previous arterial bypass done by Dr. Lobato about 20 years ago. Having pain from the left buttock down to the posterior aspect of the leg. Patient had become rather severe. Neck like was called and also mottled from the ankle downwards. Patient was taken to the [facility] earlier today by Dr. Noel and extensive trouble lysis was carried out. Patient somewhat delirious. Patient also getting a TPA infusion and heparin infusion. Patient did tell his name but somewhat delirious. On the night of May 10 patient went into asystole. Receive CPR to have some epinephrine and bicarbonate. Also developed ventricular tachycardia and received defibrillation. He was coded for a total of about 9 minutes. Lower extremities became cold and patient was taken back to the operating room by Dr. Noel. He underwent axillary aortic bypass and bifemoral bypass. Today-. Remains on the ventilator. FiO2 50 and PEEP of 5. Did receive a unit of blood. Telemetry shows sinus rhythm. Left leg remains cold. On the ventilator with the FiO2 50. PEEP of 5. Progress review of systems cannot be done as patient intubated Active Medications Albuterol Sulfate (Ventolin Nebulized) 2.5 mg INHALATION RT-Q4H PRN PRN Reason: Wheezing Last Admin: 05/11/20 11:47 Dose: 2.5 mg Documented by: Aspirin (Aspirin) 81 mg PO DAILY [facility] Last Admin: 05/11/20 10:05 Dose: Not Given Documented by: Atorvastatin Calcium (Lipitor) 40 mg PO HS [facility] Last Admin: 05/10/20 21:32 Dose: 40 mg Documented by: Budesonide/Formoterol Fumarate (Symbicort 80-4.5 Mcg Inhaler) 2 puff INHALATION RT-BID [facility] Last Admin: 05/11/20 09:21 Dose: Not Given Documented by: Chlorhexidine Gluconate (Peridex) 15 ml MUCOUS MEM BID [facility] Last Admin: 05/11/20 09:23 Dose: 15 ml Documented by: Famotidine (Pepcid) 20 mg IV DAILY [facility] Last Admin: 05/11/20 10:05 Dose: Not Given Documented by: Heparin Sodium (Porcine) (Heparin) 0 unit IV PER PROTOCOL PRN; Protocol PRN Reason: Low PTT Hydrocortisone Sodium Succinate (Solu-Cortef) 50 mg IV Q8HR [facility] Last Admin: 05/11/20 09:23 Dose: 50 mg Documented by: Hydromorphone HCl (Dilaudid) 0.5 mg IVP Q3HR PRN PRN Reason: Moderate Pain Last Admin: 05/10/20 04:52 Dose: 0.5 mg Documented by: Sodium Chloride (Saline 0.9%) 1,000 mls @ 125 mls/hr IV .Q8H [facility] Last Admin: 05/11/20 13:09 Dose: Not Given Documented by: Amiodarone HCl 300 mg/ (Dextrose/Water) 250 mls @ 25 mls/hr IV .Q10H [facility]; Protocol Stop: 05/11/20 23:29 Last Admin: 05/11/20 15:37 Dose: Not Given Documented by: Sodium Bicarbonate 150 ml/ (Sodium Chloride) 1,150 mls @ 150 mls/hr IV .Q7H40M [facility] Last Admin: 05/11/20 08:43 Dose: 150 mls/hr Documented by: Norepinephrine Bitartrate 4 mg (/ Sodium Chloride) 254 mls @ 51.431 mls/hr IV .Q4H57M [facility]; Protocol Last Titration: 05/11/20 13:32 Dose: 0.18 mcg/kg/min, 57.86 mls/hr Documented by: Epinephrine HCl 4 mg/ Dextrose (/Water) 250 mls @ 3.164 mls/hr IV .Q24H [facility]; Protocol Last Admin: 05/11/20 08:04 Dose: 0.01 mcg/kg/min, 3.164 mls/hr Documented by: Heparin Sodium/Sodium Chloride (25,000 unit/ Sodium Chloride) 250 mls @ 15.186 mls/hr IV .[id number] [facility]; Protocol Last Titration: 05/11/20 15:43 Dose: 0 units/kg/hr, 0 mls/hr Documented by: Propofol 1,000 mg/ IV Solution 100 mls @ 0 mls/hr IV .Q0M [facility]; Protocol Last Admin: 05/11/20 14:25 Dose: 10 mcg/kg/min, 5.058 mls/hr Documented by: Insulin Aspart (Novolog) 0 unit SQ ACHS [facility]; Protocol Last Admin: 05/11/20 14:26 Dose: Not Given Documented by: Latanoprost (Xalatan 0.005%) 1 drops BOTH EYES [facility] Last Admin: 05/10/20 21:32 Dose: 1 drops Documented by: Metoprolol Tartrate (Lopressor) 25 mg PO BID-W/MEALS [facility] Last Admin: 05/11/20 08:42 Dose: Not Given Documented by: Montelukast Sodium (Singulair) 10 mg PO HS [facility] Last Admin: 05/10/20 21:31 Dose: 10 mg Documented by: Morphine Sulfate (Morphine Sulfate (Inj)) 4 mg IV Q4HR PRN PRN Reason: Severe Pain Naloxone HCl (Narcan) 0.2 mg IV Q2M PRN PRN Reason: Opioid Reversal Ondansetron HCl (Zofran) 4 mg IVP Q8HR PRN PRN Reason: Nausea And Vomiting Potassium Phos/Sodium Phos (Neutra-Phos Packet) 1 each PO BID [facility] Last Admin: 05/11/20 09:24 Dose: Not Given Documented by: Theophylline (Rusty-24) 600 mg PO DAILY [facility] Last Admin: 05/11/20 09:23 Dose: Not Given Documented by: Physical examination: VITAL SIGNS: 97.6, 89, 20, 100/61, 100% on the ventilator GENERAL: Laying in bed, intubated EYES: Pupils equal. Conjunctiva normal. HEENT: External appearance of nose and ears normal, oral cavity endotracheal tube NECK: JVD unable to assess; masses not palpable. HEART: First and second heart sounds are normal; no edema. LUNGS: Respiratory rate increase; decreased breath sounds. ABDOMEN: Soft, nontender, liver spleen not palpable, no masses palpable. PSYCH: Unable to assess NEUROLOGICAL: [Cranial nerves grossly; no facial asymmetry, EXTREMITY: Patient's left leg is cold INVESTIGATIONS, reviewed in the clinical context: White count 5.7 hemoglobin 8.4 platelet is 129 INR 2.8 Potassium 6.4 bun 31 and creatinine 2.04 AST 3611 ALT 654 albumin 2.8 Previous testing White count 9.6 hemoglobin 14.4 platelets 345 pro time 12.5 potassium 4.9 bun 48 creatinine 2.55 EKG tracing personally reviewed by me-still sensitive the with poor R-wave progression Assessment: -Critical limb ischemia acute to the left lower extremity with aortic occlusion and left lower extremity femoral occlusion. Followed by aortic thrombolysis via left brachial artery. Recurrent of ischemia. Patient requiring axillary aort ofemoral bypass -Acute ischemic hepatitis from hypotension -Cardiac arrest for 9 minutes -Hyperkalemia from acute kidney injury -Acute delirium multifactorial -Coronary artery disease prior history of stent -Chronic congestive heart failure EF not known -COPD in an ex-smoker -Diabetes mellitus type 2 -GERD -Hyperlipidemia -Essential hypertension -Primary osteoarthritis -Obstructive sleep apnea uses CPAP machine -Suspect chronic kidney disease, acute kidney injury cannot be ruled out given the occlusion Plan: Patient chronically on amiodarone, levo fed, IV heparin, norepinephrine propofol. On the ventilator. Prognosis guarded. April of had some anoxic brain injury. Follow closely. With supportive care. Kayexalate given. Insulin given. Calcium gluconate given. IV hydrocortisone. Thank you Dr. Noel
--- NOTE | 2020-05-11 19:45 | P.PN ---
Progress Note - Text Progress Note Date: 05/11/20 CODE BLUE note: JUDAH SALMERON was called on this patient around 4 PM. Patient was noted to be in a systole. CPR was initiated. Patient was given multiple amps of epinephrine and bicarbonate. He was given amiodarone 300 mg and started on a drip. V. tach was noted on the monitor and patient was cardioverted at 100 J and 200 J. We briefly got a pulse back and patient went back into asystole. He was also given calcium chloride for hyperkalemia along with insulin. He continued to be an asystole. Please refer to code sheet for further details of this code. Patient was pronounced at 4:40 PM. This event took about [address] [place] and Dr. Rich was notified by nursing.
--- NOTE | 2020-05-12 09:42 | CDI ---
Documentation Clarification Form Date: 05/12/2020 09:31:15 AM From: Edelmira Seo RN, CCDS Admit Date: 05/10/2020 03:12:00 AM Patient Name: Danny Wolf Visit Number: [id number] Discharge Date: 05/11/2020 09:55:00 PM ATTENTION: The Clinical Documentation Specialists (CDI) and [facility] Coding Staff appreciate your assistance in clarifying documentation. Please respond to the clarification below the line at the bottom and electronically sign. The CDI & [facility] Coding staff will review the response and follow-up if needed. Please note: Queries are made part of the Legal Health Record. If you have any questions, please contact the author of this message via ITS. Dr. Iraj Rich Chronic CHF is documented in the Medical Consult and Progress notes and requires further clarification. History/Risk Factors: CHF, COPD, HTN, [place], Hyperlipidemia, sleep apnea, S/P cardiac arrest x2 this admission Clinical Indicators: 05/10 Medical Consult and 05/11 Progress Note: "Chronic congestive heart failure EF not known." 05/10 130 Admission VS/Pulse OX: Temp 98, HR 100, RR 18, B/P 156/78, Spo2 99% RA BNP: no checked 05/11 Echocardiogram Results:"There is severe global hypokinesis of LV .Overall left ventricular systolic function is severely impaired with, an EF < 20%.Basal Anterior and Basal Inferolateral morfin are the only segments breanna." 05/11 Chest X Ray:"By basilar atelectasis favored over pneumonia with suspected underlying COPD. .Findings suggest right sided subcutaneous emphysema. No sizable pneumothorax. Correlate clinically. Treatment: Lasix 40 mg PO BID In your professional opinion, can you please clarify the acuity and type of CHF if known? Systolic Heart Failure: Acute Chronic Acute on Chronic Systolic & Diastolic Heart Failure: Acute Chronic Acute on Chronic Heart Failure Unable to Determine Other, please specify (Last Revision: March 2018) Chronic congestive heart failure from systolic dysfunction EF less than 20% MTDD
--- NOTE | 2020-05-12 10:04 | CDI ---
Documentation Clarification Form Date: 05/12/2020 09:46:08 AM From: Edelmira Seo RN. CCDS Admit Date: 05/10/2020 03:12:00 AM Patient Name: Danny Wolf Visit Number: [id number] Discharge Date: 05/11/2020 09:55:00 PM ATTENTION: The Clinical Documentation Specialists (CDI) and [facility] Coding Staff appreciate your assistance in clarifying documentation. Please respond to the clarification below the line at the bottom and electronically sign. The CDI & [facility] Coding staff will review the response and follow-up if needed. Please note: Queries are made part of the Legal Health Record. If you have any questions, please contact the author of this message via ITS. Dr. Iraj Rich Delirium has been documented and based on clinical condition if possible please describe in greater specificity to accurately reflect SOI/ROM. History/Risk Factors: CAD, CHF, COPD, DM, HTN, Home O2, CPAP, Critical limb ischemia of LLE with aortic occlusion this admission, DONTAE on CKD this admission, Type 2 LA this admission Clinical Indicators: 05/10 Medical Consult and Progress Note: "Patient somewhat delirious. Patient did tell his name but somewhat delirious. Admitting review of systems cannot be done as patient rather delirious. Acute delirium multifactorial." 05/11 Pulmonary Progress Note: "Pupils are equally reactive to light, patient is unresponsive to verbal or painful stimuli. (S/p 1st cardiac arrest)" 05/10-05/11 Labs: WBC 12.8/10.7, Neutrophils 11.5/4.7, K+ 4.9/6.2, BUN 48/35, Creatinine 2.55/2.47, GFR 24/25, Plasma Lactic Acid 8.3/10.3, CA+ 6.6, Mag 1.4, AST 3611, ALT 654, Troponin 2.48 05/11 CXR:"1.By basilar atelectasis favored over pneumonia with suspected underlying COPD. 2. Findings suggest right sided subcutaneous emphysema. No sizable pneumothorax correlate clinically." Treatment: Ca+Cl- 1 amp x 1 CA+GL- 1 gm IVPB x 2 D50 x 2 amps Solucortef 50 mg IVP @ 8 hrs Dilaudid 0.5mg IVP q 3 hrs PRN pain IV insulin boluses Ativan 1 mg PO TID 0.9% NS IVF bolus In your professional opinion, please clarify the etiology of the Altered Mental Status, if known. Metabolic Encephalopathy (specify Underlying Medical Illness) Toxic Encephalopathy (specify Underlying Medical Illness) Hypoxic Encephalopathy (specify Underlying Medical Illness) Septic Encephalopathy (specify Underlying Medical Illness) Other condition (please specify) Unable to determine (Last Revision: March 2018) Acute metabolic encephalopathy and delirium-multifactorial MTDD
--- NOTE | 2020-05-12 10:41 | CDI ---
Documentation Clarification Form Date: 05/12/2020 10:05:35 AM From: Edelmira Seo RN, CCDS Admit Date: 05/10/2020 03:12:00 AM Patient Name: Danny Wolf Visit Number: [id number] Discharge Date: 05/11/2020 09:55:00 PM ATTENTION: The Clinical Documentation Specialists (CDI) and [facility] Coding Staff appreciate your assistance in clarifying documentation. Please respond to the clarification below the line at the bottom and electronically sign. The CDI & [facility] Coding staff will review the response and follow-up if needed. Please note: Queries are made part of the Legal Health Record. If you have any questions, please contact the author of this message via ITS. Dr. Iraj Rich Hypotension is documented in a patient with Type 2 [place], peripheral vascular occlusion, and s/p cardiac arrest and requires further specificity. Patient history/risk factors: [place], peripheral vascular occlusive disease Clinical Indicators: Cardiac arrest x2 05/11 Cardiology Consult: Acute occlusion of the aorta, status post axillary bifemoral bypass. 2. Episode of ventricular tachycardia and bradycardia. Elevation of troponin could be related to the peripheral vascular occlusion and the overall status, most likely representing a type 2 myocardial infarction." 05/11 Pulmonary progress Note: " Considering the patient is hypotensive I recommended that we continue norepinephrine and epinephrine and I will also recommended Solu-Cortef 50 mg IV push every 8 hours since the patient is normally on prednisone at 5 mg daily. Patient had a cardiac arrest, and asystole. May have sustained some anoxic brain injury during his cardiac arrest. Impression: Acute on chronic arterial insufficiency to right lower extremity and right lower extremity Cardiac arrest requiring CPR for 9 minutes. His acute episode is mostly related to his cardiac arrest. 05/11 Medical Progress Note: "Patient requiring axillary aortofemoral bypass - Acute ischemic hepatitis from hypotension." 05/11 0800 Vitals: HR 83, RR 20, B/P77/55, spo2 100& on 100% MV 05/10-05/11 Labs:" HGB 14.4/15.2/8.4/11.7 with 1 u PRBC's transfused 05/11 Echo: There is severe global hypokinesis of LV. Overall left ventricular systolic function is severely impaired with, an EF < 20%.Basal Anterior and Basal Inferolateral morfin are the only segments breanna. Treatment: 05/11 Levophed Gtt titrate for B/P 05/11 Epi Gtt titrate for B/P In your professional opinion, can you please specify the type of shock if known? Cardiogenic Shock Cause Hypovolemic Shock Cause Other, please specify Unable to determine (Last Revision: September 2017) Cardiogenic and hypovolemic shock MTDD
--- NOTE | 2020-05-16 11:11 | P.DS ---
Providers Date of admission: 05/10/20 03:12 Expected date of discharge: 05/11/20 Attending physician: Jared Noel DO Consults: 05/10/20 03:10 Consult Physician Routine Consulting Provider: Iraj Rich Consult Reason/Comments: medical management Do you want consulting provider notified?: Yes 05/10/20 11:42 Consult Physician Routine Consulting Provider: Wilmer Romo Consult Reason/Comments: icu management Do you want consulting provider notified?: Yes 05/10/20 20:32 Consult Physician Routine Consulting Provider: Frank Gómez Consult Reason/Comments: tachycardia Do you want consulting provider notified?: Yes Primary care physician: Cat Duval - Discharge Diagnosis(es) (1) Critical ischemia of lower extremity Status: Acute (2) Cardiac arrest Status: Acute (3) Congestive heart failure (CHF) Status: Acute (4) Diabetes mellitus Status: Acute (5) COPD (chronic obstructive pulmonary disease) with emphysema Status: Acute (6) Aortic occlusion Status: Acute Hospital Course: 74 year old male originally presented as a transfer from [facility] for left lower extremity arterial occlusive disease. He underwent catheter directed thrombolysis through an thrombosed aortic graft. Overnight he had a cardiac event and coded which was determined to be due to his worsening lactic acidosis due to critical limb ischemia. The catheter was found to be pulled back and not across the lesion and patient was taken back to OR for emergent open thrombectomy and revascularization. He underwent Axillobifemoral bypass and fasciotomies. He went back to the ICU for further care but became bradycardic and coded again but was unable to recover and was pronounced at that time. Please refer to the chart for all details. Procedures: Aortogram with initiation of thrombolysis [id number] artery bypass Patient Condition at Discharge: Undetermined Plan - Discharge Summary Discharge Rx Participant: No New Discharge Prescriptions: No Action LORazepam [Ativan] 1 mg PO TID PRN PRN Reason: Anxiety hydrALAZINE HCL [Apresoline] 50 mg PO BID Montelukast [Singulair] 10 mg PO HS Theophylline 12 Hour [Rusty-Dur] 300 mg PO BID Montelukast [Singulair] 10 mg PO HS Azithromycin 250 mg .ROUTE DAILY Ramipril 10 mg PO DAILY Albuterol Sulfate [Proventil Hfa] 2 puff INHALATION RT-Q4H PRN PRN Reason: Wheezing predniSONE 5 mg PO DAILY Potassium Chloride [Klor-Con 20] 20 meq PO DAILY metFORMIN HCL 1,000 mg PO BID Metoprolol Tartrate [Lopressor] 50 mg PO BID-W/MEALS Latanoprost [Xalatan 0.005%] 1 drop BOTH EYES HS Furosemide [Lasix] 40 mg PO BID Alendronate Sodium [Fosamax] 70 mg PO Q7D Fenofibrate Nanocrystallized [Fenofibrate] 145 mg PO DAILY Atorvastatin [Lipitor] 40 mg PO HS Fluticasone/Salmeterol [Advair Hfa 45-21 Mcg Inhaler] 2 puff INHALATION RT- BID Aspirin EC [Ecotrin Low Dose] 81 mg PO DAILY Sod Phos Di, [place]/K Phos [place] [Phosphorous 250 mg Tablet] 250 mg PO BID Discharge Medication List Albuterol Sulfate [Proventil Hfa] 2 puff INHALATION RT-Q4H PRN 05/10/20 [History] Alendronate Sodium [Fosamax] 70 mg PO Q7D 05/10/20 [History] Aspirin EC [Ecotrin Low Dose] 81 mg PO DAILY 05/10/20 [History] Atorvastatin [Lipitor] 40 mg PO HS 05/10/20 [History] Azithromycin 250 mg .ROUTE DAILY 05/10/20 [History] Fenofibrate Nanocrystallized [Fenofibrate] 145 mg PO DAILY 05/10/20 [History] Fluticasone/Salmeterol [Advair Hfa 45-21 Mcg Inhaler] 2 puff INHALATION RT-BID 05/10/20 [History] Furosemide [Lasix] 40 mg PO BID 05/10/20 [History] LORazepam [Ativan] 1 mg PO TID PRN 05/10/20 [History] Latanoprost [Xalatan 0.005%] 1 drop BOTH EYES HS 05/10/20 [History] Metoprolol Tartrate [Lopressor] 50 mg PO BID-W/MEALS 05/10/20 [History] Montelukast [Singulair] 10 mg PO HS 05/10/20 [History] Montelukast [Singulair] 10 mg PO HS 05/10/20 [History] Potassium Chloride [Klor-Con 20] 20 meq PO DAILY 05/10/20 [History] Ramipril 10 mg PO DAILY 05/10/20 [History] Sod Phos Di, [place]/K Phos [place] [Phosphorous 250 mg Tablet] 250 mg PO BID 05/10/20 [History] Theophylline 12 Hour [Rusty-Dur] 300 mg PO BID 05/10/20 [History] hydrALAZINE HCL [Apresoline] 50 mg PO BID 05/10/20 [History] metFORMIN HCL 1,000 mg PO BID 05/10/20 [History] predniSONE 5 mg PO DAILY 05/10/20 [History] Follow up Appointment(s)/Referral(s): Cat Duval MD [Primary Care Provider] - 1-2 days Discharge Disposition: - Preliminary Cause of Preliminary Cause of : Multi organ failure secondary to metabolic acidosis from limb ischemia
== END 2020-05-11 21:55 | disposition expired | DRG 270 ==
LOC: EC 01:28 → 5NMEDONC 03:12 → 2SICU 11:26
PROVIDERS: ADMIT Surgery; ATTEND Surgery
PROC: 3E05317 Introduction of Other Thrombolytic into Peripheral Artery, Percutaneous Approach (ICD-10-PCS; 2020-05-10)
PROC: 04CJ0ZZ Extirpation of Matter from Left External Iliac Artery, Open Approach (ICD-10-PCS; principal; 2020-05-11 00:59)
PROC: 0J8P0ZZ Division of Left Lower Leg Subcutaneous Tissue and Fascia, Open Approach (ICD-10-PCS; principal; 2020-05-11 00:59)
PROC: 0J8N0ZZ Division of Right Lower Leg Subcutaneous Tissue and Fascia, Open Approach (ICD-10-PCS; principal; 2020-05-11 00:59)
PROC: 03150J8 Bypass Right Axillary Artery to Bilateral Upper Leg Artery with Synthetic Substitute, Open Approach (ICD-10-PCS; principal; 2020-05-11 00:59)
PROC: 04CL0ZZ Extirpation of Matter from Left Femoral Artery, Open Approach (ICD-10-PCS; principal; 2020-05-11 00:59)
PROC: 04CH0ZZ Extirpation of Matter from Right External Iliac Artery, Open Approach (ICD-10-PCS; principal; 2020-05-11 00:59)
PROC: 04CK0ZZ Extirpation of Matter from Right Femoral Artery, Open Approach (ICD-10-PCS; principal; 2020-05-11 00:59)
DX: I77.1 Stricture of artery (principal); J96.21 Acute and chronic respiratory failure with hypoxia; K72.00 Acute and subacute hepatic failure without coma; I21.A1 Myocardial infarction type 2; G93.41 Metabolic encephalopathy; I13.0 Hypertensive heart and chronic kidney disease with heart failure and stage 1 through stage 4 chronic kidney disease, or unspecified chronic kidney disease; E87.2 Acidosis; N17.9 Acute kidney failure, unspecified; F05 Delirium due to known physiological condition; I47.2 Ventricular tachycardia; I50.22 Chronic systolic (congestive) heart failure; E87.5 Hyperkalemia; J44.9 Chronic obstructive pulmonary disease, unspecified; G47.33 Obstructive sleep apnea (adult) (pediatric); N18.3 Chronic kidney disease, stage 3 (moderate); R57.1 Hypovolemic shock; I46.8 Cardiac arrest due to other underlying condition; M19.90 Unspecified osteoarthritis, unspecified site; E11.22 Type 2 diabetes mellitus with diabetic chronic kidney disease; R57.0 Cardiogenic shock; K21.9 Gastro-esophageal reflux disease without esophagitis; Z96.1 Presence of intraocular lens; E11.39 Type 2 diabetes mellitus with other diabetic ophthalmic complication; H42 Glaucoma in diseases classified elsewhere; M19.041 Primary osteoarthritis, right hand; K75.89 Other specified inflammatory liver diseases; M19.042 Primary osteoarthritis, left hand; E78.5 Hyperlipidemia, unspecified; E11.51 Type 2 diabetes mellitus with diabetic peripheral angiopathy without gangrene; I25.10 Atherosclerotic heart disease of native coronary artery without angina pectoris; I25.2 Old myocardial infarction; Z87.891 Personal history of nicotine dependence; Z79.899 Other long term (current) drug therapy; Z79.84 Long term (current) use of oral hypoglycemic drugs; Z79.83 Long term (current) use of bisphosphonates; Z79.82 Long term (current) use of aspirin; Z79.51 Long term (current) use of inhaled steroids; Z82.49 Family history of ischemic heart disease and other diseases of the circulatory system; Z90.49 Acquired absence of other specified parts of digestive tract; Z95.5 Presence of coronary angioplasty implant and graft; Z99.81 Dependence on supplemental oxygen; Z87.01 Personal history of pneumonia (recurrent); Z98.42 Cataract extraction status, left eye; Z98.41 Cataract extraction status, right eye; Z86.79 Personal history of other diseases of the circulatory system
CPT/HCPCS: 36415; 36600; 71045; 75630; 80048; 80053; 82803; 82805; 83605; 83735; 84484; 85025; 85027; 85384; 85610; 85730; 86850; 86900; 86901; 86920; 87070; 87077; 87186; 87205; 92950; 93005; 93306; 94002; 94003; 94640; 96365; 96366; 96375; 96376; 99291